=== PATIENT | female | born 1985 | race Caucasian/White ===

== ENCOUNTER → 2016-10-02 | Outpatient (CLI) | payer OTHER ==
[~2016-10-02] MED LIST: ASCO500T87 PO; CETI10TA84 PO; CLR10 PO; FLV1 PO; GLC500 PO; LAMO200T38 PO; LMC25 PO; LXP10 PO; METO-157 PO; ONDA8TAB62 SL; PHNS125 RE; PREN1TAB51 PO; SERT-234 PO; ZNTT/150 PO
== END | disposition home or self-care (01) ==
LOC: C.LAB1850 15:28
PROVIDERS: ATTEND Obstetrics & Gynecology
DX: E03.9 Hypothyroidism, unspecified (principal)

== ENCOUNTER 2016-12-04 00:35 | Emergency (ER) | payer OTHER ==
[~2016-12-04] VITALS: Ht 142.2 cm; Wt 76.4 kg
[~2016-12-04 00:35] MED LIST changes: -ASCO500T87 PO; -CETI10TA84 PO; -FLV1 PO; -GLC500 PO; -LAMO200T38 PO; -LMC25 PO; -LXP10 PO; -METO-157 PO; -ONDA8TAB62 SL; -PHNS125 RE; -PREN1TAB51 PO
[2016-12-04 00:42] VITALS: TEMP 37.3; Ht 142.2 cm; Wt 76.4 kg
[2016-12-04] MEDS ORDERED: LIDOCAINE HCL 2% VISC SOLN 20 ML UDC PO STA (00:55)
[2016-12-04] MEDS ORDERED: ALUMINUM/MAGNESIUM SUSP 30 ML UDC PO STA (00:55)
[2016-12-04] MEDS ORDERED: DEXAMETHASONE SOD INJ 10 MG/ML VIAL PO ONE (01:00)
[2016-12-04 02:00] VITALS: BP 105/67; PULSE 102; O2SAT 96
[2016-12-04] MEDS ORDERED: LXP10 PO (02:13)
[2016-12-04] MEDS ORDERED: PREN1TAB51 PO (02:13)
[2016-12-04] MEDS ORDERED: LAMO200T38 PO (02:13)
[2016-12-04] MEDS ORDERED: LMC25 PO (02:13)
[2016-12-04] MEDS ORDERED: FLV1 PO (02:13)
[2016-12-04] MEDS ORDERED: GLC500 PO (02:13)
[2016-12-04] MEDS ORDERED: ASCO500T87 PO (02:14)
[2016-12-04] MEDS ORDERED: CETI10TA84 PO (02:14)
--- NOTE | 2016-12-04 03:57 | EMERGENCY ROOM VISIT NOTE ---
History First contact with patient: 00:46 Chief Complaint: SORETHROAT Stated Complaint: SEVERE THROAT PAIN History of Present Illness The patient is a 31 year old female who presents to the Emergency Room with complaints of sore throat and loss of voice for the past day. This is a recurrent problem for this patient. Patient denies fever, chills, chest pain, dyspnea, earache, cough, abdominal pain, vomiting, diarrhea. Patient is supposed to have IVF next week. Patient does not smoke or drink. Review of Systems See HPI for pertinent positives & negatives. A total of 10 systems reviewed and were otherwise negative. Past Medical/Surgical History Diabetes, GERD, mood disorder Social History Smoking Status: Never Smoker Alcohol Use: none Drug Use: none Marital Status: Housing Status: lives with family Occupation Status: [employer] student Current/Historical Medications Scheduled Ascorbic Acid (Vitamin C Tr/Priya Hips), 500 MG PO DAILY Cetirizine (Zyrtec), 10 MG PO DAILY Escitalopram Oxalate (Escitalopram Oxalate), 15 MG PO DAILY Folic Acid (Folic Acid), 2 MG PO DAILY Lamotrigine (Lamotrigine), 25 MG PO DAILY Lamotrigine (Lamictal), 200 MG PO DAILY Metformin HCl (Metformin HCl), 500 MG PO DAILY Vit W/ Ferrous Fumara (Pnv Plus Multivi), 1 TAB PO DAILY Ranitidine (Zantac), 150 MG PO BID Allergies Coded Allergies: Amoxicillin (Verified Allergy, Intermediate, HIVES, 12/04/16) Ibuprofen (Verified Allergy, Intermediate, rash, 12/04/16) Shellfish Allergy (Verified Allergy, Intermediate, HIVES, 12/04/16) Physical Exam Vital Signs Date Time Temp Pulse Resp B/P Pulse Ox O2 Delivery O2 Flow Rate FiO2 12/04/16 02:00 102 18 105/67 96 Room Air 12/04/16 01:20 Room Air 12/04/16 00:42 37.3 105 18 122/78 96 Room Air Pain Rating (0-10): 2.0 Physical Exam VITALS: Vitals are noted on the nurse's note and reviewed by myself. Vital signs stable. GENERAL: Pleasant female with a hoarse voice, in no acute distress, nondiaphoretic, well-developed well-nourished. SKIN: The skin was without rashes, erythema, edema, or bruising. There is no tenting of the skin. Capillary reflex less than 2 seconds. HEAD: Normocephalic atraumatic. EARS: External auditory canals clear, tympanic membranes pearly dailey without erythema or effusion bilaterally. EYES: Pupils equal round and reactive to light and accommodation. Conjunctivae without injection, sclerae without icterus. Extraocular movements intact. NOSE: Patent, turbinates without inflammation or discharge. No sinus tenderness. MOUTH: Mucous membranes moist. Pharynx without erythema or exudate. Uvula midline. Airway patent. Tongue does not deviate. NECK: Supple without nuchal rigidity. No lymphadenopathy. No thyromegaly. Cervical spine is nontender. No JVD. HEART: Regular rate and rhythm without murmurs gallops or rubs. LUNGS: Clear to auscultation bilaterally without wheezes, rales or rhonchi. No dullness to percussion. No retractions or accessory muscle use. ABDOMEN: Positive bowel sounds x 4. Normal tympanic percussion. Soft, nontender, without masses or organomegaly. Doran sign negative. No guarding or rebound tenderness. MUSCULOSKELETAL: No muscle atrophy, erythema, or edema noted. NEURO: Patient was alert and oriented to person place and time. Normal sensation to light and sharp touch. No focal neurological deficits. Medical Decision & Procedures Medications Administered Medications (Trade) Dose Ordered Sig/Yvonne Route Start Time Stop Time Status Last Admin Dose Admin Lidocaine HCl (Viscous Lidocaine 2% Soln) 10 ml NOW STAT PO 12/04/16 00:55 12/04/16 00:57 DC 12/04/16 01:18 10 ML Al Hydroxide/Mg Hydroxide (Maalox Susp) 30 ml NOW STAT PO 12/04/16 00:55 12/04/16 00:57 DC 12/04/16 01:18 30 ML Dexamethasone Sodium Phosphate (Decadron Inj) 10 mg NOW ONCE PO 12/04/16 01:00 12/04/16 01:01 DC 12/04/16 01:18 10 MG ED Course Prior records/ancillary studies reviewed. Triage Nursing notes reviewed. The patient's history was concerning for a sore throat. Differential diagnosis: Etiologies such as viral syndrome, tonsillitis, streptococcal pharyngitis, mononucleosis, peritonsillar abscess, retropharyngeal abscess, otitis, pneumonia , influenza, as well as others were entertained. ER treatment provided: Decadron, GI cocktail On reassessment the patient felt better. Diagnostics interpreted by me: The labs revealed negative strep test sent for culture This appears to be consistent with laryngitis. Patient felt somewhat better after being medicated as above. She requested referral to ENT. She was given information on this. She is advised to drink plenty of fluids and stay well- hydrated and to avoid tobacco, alcohol, spicy foods and do vocal rest. She is advised to follow-up family care in a few days or here in the ER sooner for high fevers, lethargy, neck stiffness, worsening signs or symptoms or as needed. By the evaluation outlined above emergent etiologies such as peritonsillar abscess, retropharyngeal abscess, otitis, pneumonia, meningitis, urinary tract infection, sepsis, bacteremia, as well as others were deemed relatively unlikely. The pt informed about the findings as listed above. All questions were answered and pleased with the treatment. Return instructions were outlined and the patient was discharged in stable condition. Referral: The patient was referred back to their primary care physician for follow-up in 2 to 3 days for a recheck of the current condition. Medical Decision As above Impression Primary Impression: Laryngitis, acute Departure Information Dispostion Home / Self-Care Condition GOOD Referrals Thee Hunt D.O. Forms HOME CARE DOCUMENTATION FORM, IMPORTANT VISIT INFORMATION Patient Instructions My [facility], ED Laryngitis Additional Instructions Avoid overuse of your voice. Avoid acidic foods, alcohol, tobacco. Acetaminophen(Tylenol) may be used for fever or pain. Use 1000mg every six hours as needed. Avoid using more than 3000mg in a 24 hour period. (AND/OR) Ibuprofen(Motrin, Advil) may be used for fever or pain. Use 600mg every six hours as needed. Take with food. Avoid using more than 2400mg in a 24 hour period. Do not use 2400mg per day for more than three consecutive days without physician direction. Prolonged inappropriate use can lead to stomach upset or ulcers. Afrin nasal spray: 2-3 sprays to each nostril twice daily as needed for congestion. Do not use for more than 3-4 days because it can lead to worsening rebound congestion. Pseudoephedrine(Sudaphed): 30-60mg every 6 hours as needed for nasal congestion. Do not take this with other stimulant products or supplements. Rest and drink plenty of fluids. Controlling your fever with Tylenol and Ibuprofen as above will make you feel better. Wash your hands after nose blowing, sneezing, or coughing. Most germs are spread through contact, therefore improper hygiene may result in your close contacts and loved ones becoming ill just like you. Continue current medications. Return to the ER for severe headache, neck stiffness, chest pain, difficulty breathing, fevers, vomiting, worsening of your condition, or as needed. Follow up with your primary physician this week for a recheck of your current condition. Follow-up with ENT if symptoms persist. Call for an appointment.
== END 2016-12-04 02:02 | disposition home or self-care (01) ==
LOC: C.EDB 00:37
DX: J04.0 Acute laryngitis (principal); E11.9 Type 2 diabetes mellitus without complications

== ENCOUNTER 2016-12-29 09:23 | Outpatient (CLI) | payer OTHER ==
[~2016-12-29 09:23] MED LIST changes: -KFL500 PO; -METO-157 PO; -ONDA8TAB62 SL; -PHNS125 RE; -RMR15 PO
== END 2016-12-29 09:55 | disposition home or self-care (01) ==
LOC: C.OPB 09:23 → C.LD 09:25 → C.OPB 09:55
PROVIDERS: ATTEND Obstetrics & Gynecology

== ENCOUNTER → 2016-12-29 | Outpatient (CLI) | payer OTHER ==
[~2016-12-29] MED LIST changes: +ASCO500T87 PO; +CETI10TA84 PO; -CLR10 PO; +FLV1 PO; +GLC500 PO; +KFL500 PO; +LAMO200T38 PO; +LMC25 PO; +LXP10 PO; +METO-157 PO; +ONDA8TAB62 SL; +PHNS125 RE; +PREN1TAB51 PO; +RMR15 PO; -SERT-234 PO
[2016-12-29 09:12] LABS: POST WASH EXAM EXCELLENT
== END | disposition home or self-care (01) ==
LOC: C.LAB 08:22
PROVIDERS: ATTEND Obstetrics & Gynecology
DX: N97.9 Female infertility, unspecified (principal)

== ENCOUNTER → 2017-04-03 | Outpatient (CLI) | payer OTHER ==
[~2017-04-03] MED LIST changes: +KFL500 PO; +METO-157 PO; +ONDA8TAB62 SL; +PHNS125 RE; +RMR15 PO
[2017-04-03 14:56] LABS: URINE APPEARANCE CLOUDY (CLEAR); URINE BILIRUBIN NEG (NEG); URINE COLOR DK YELLOW; URINE EPITHELIAL CELL AUTO >30 /lpf (0-5); URINE NITRITE NEG (NEG); URINE SPECIFIC GRAVITY 1.024 (1.000-1.030); UROBILINOGEN NEG (NEG)
[2017-04-03 15:13] LABS: MANUAL MICROSCOPIC REQUIRED? NO; REVIEW REQ? NO
== END | disposition home or self-care (01) ==
LOC: C.LABSPEC 13:45
PROVIDERS: ATTEND Obstetrics & Gynecology
DX: O09.01 Supervision of pregnancy with history of infertility, first trimester (principal)

== ENCOUNTER → 2017-05-07 | Outpatient (CLI) | payer OTHER ==
[2017-05-07 16:12] LABS: BASO % 0.3 %; BASO ABS # 0.02 K/uL (0-0.2); COMPLETE YES; EOS % 1.3 %; HEMATOCRIT 33.3 % (37-47); IG% 0.1 %; LYMPH % 23.7 %; LYMPH ABS # 1.79 K/uL (1.2-3.4); MEAN CELL VOLUME 76.9 fL (80-100); MEAN CORPUSCULAR HEMOGLOBIN 25.6 pg (25-34); MEAN CORPUSCULAR HGB CONC 33.3 g/dl (32-36); MEAN PLATELET VOLUME 9.2 fL (7.4-10.4); MONO % 6.7 %; NEUT % 67.9 %; PLATELET COUNT 345 K/uL (130-400); RED BLOOD COUNT 4.33 M/uL (4.2-5.4); WHITE BLOOD COUNT 7.56 K/uL (4.8-10.8)
[2017-05-09 14:58] LABS: CHLAMYDIA TRACH RNA*** NOT DETECTED (NOT DETECTED); GC (NEIS GONORRHOEAE)RNA** NOT DETECTED (NOT DETECTED)
== END | disposition home or self-care (01) ==
LOC: C.LAB1850 14:57
PROVIDERS: ATTEND Obstetrics & Gynecology
DX: O21.9 Vomiting of pregnancy, unspecified (principal); Z3A.00 Weeks of gestation of pregnancy not specified

== ENCOUNTER 2017-05-27 12:35 | Inpatient (IN) | payer OTHER ==
[~2017-05-27] VITALS: Ht 142.2 cm; Wt 68.0 kg
[~2017-05-27 12:35] MED LIST changes: -KFL500 PO; -METO-157 PO; -ONDA8TAB62 SL; -PHNS125 RE; -RMR15 PO
[2017-05-27] MEDS ORDERED: METO-157 PO (13:20)
[2017-05-27] MEDS ORDERED: PHNS125 RE (13:20)
[2017-05-27] MEDS ORDERED: ONDA8TAB62 SL (13:20)
[2017-05-27 13:52] LABS: URINE APPEARANCE TURBID (CLEAR); URINE COLOR DK YELLOW; URINE EPITHELIAL CELL AUTO >30 /lpf (0-5); URINE NITRITE NEG (NEG); URINE SPECIFIC GRAVITY 1.031 (1.000-1.030); UROBILINOGEN NEG (NEG)
[2017-05-27 14:09] LABS: MANUAL MICROSCOPIC REQUIRED? NO; REVIEW REQ? YES; URINE BILIRUBIN NEG (NEG)
[2017-05-27 14:12] LABS: BASO % 0.1 %; BASO ABS # 0.01 K/uL (0-0.2); COMPLETE YES; EOS % 1.3 %; HEMATOCRIT 34.3 % (37-47); IG% 0.2 %; LYMPH % 24.9 %; LYMPH ABS # 2.12 K/uL (1.2-3.4); MEAN CELL VOLUME 78.3 fL (80-100); MEAN CORPUSCULAR HEMOGLOBIN 25.1 pg (25-34); MEAN CORPUSCULAR HGB CONC 32.1 g/dl (32-36); MEAN PLATELET VOLUME 8.8 fL (7.4-10.4); MONO % 4.6 %; NEUT % 68.9 %; PLATELET COUNT 359 K/uL (130-400); RED BLOOD COUNT 4.38 M/uL (4.2-5.4); WHITE BLOOD COUNT 8.51 K/uL (4.8-10.8)
[2017-05-27 14:28] LABS: URINE MUCUS PRESENT (NONE PRSENT)
[2017-05-27 14:42] LABS: ALT/SGPT 20 U/L (12-78); AST/SGOT 10 U/L (15-37); BLOOD UREA NITROGEN 8 mg/dl (7-18); BUN/CREATININE RATIO 14.5 (10-20); CALCIUM 9.1 mg/dl (8.5-10.1); CARBON DIOXIDE 24 mmol/L (21-32); CHLORIDE 103 mmol/L (98-107); CREATININE 0.55 mg/dl (0.60-1.20); GLUCOSE 76 mg/dl (70-99); POTASSIUM 3.7 mmol/L (3.5-5.1); SODIUM 136 mmol/L (136-145)
[2017-05-27] MEDS ORDERED: CEPHALEXIN MONOHYDRATE 250 MG CAP PO ONE (14:45)
[2017-05-27] MEDS ORDERED: OPTIRAY 320 IV PRN (14:45)
[2017-05-27 14:52] LABS: ALKALINE PHOSPHATASE 90 U/L (45-117); THYROID STIMULATING HORMONE 0.771 uIu/ml (0.300-4.500)
[2017-05-27 15:18] LABS: BENZODIAZEPINE, URINE NEG (NEG); COCAINE,URINE NEG (NEG); PHENCYCLIDINE, URINE NEG (NEG)
--- NOTE | 2017-05-27 15:36 | DIAGNOSTIC IMAGING REPORT ---
(CHEST FOR PE) ANGIO WITH CT DOSE: 254.88 mGy.cm HISTORY: 32 years-old Female acute shortness of breath with and elevated d-dimer. TECHNIQUE: Multiple CTA images of the chest were obtained after the intravenous administration of 77 ml Optiray 320. Coronal and sagittal MIPS were obtained from the axial data set and were submitted for review. A dose lowering technique was utilized adhering to the principles of ALARA. COMPARISON: None. FINDINGS: Study is mildly limited secondary to respiratory motion. CTA: There is adequate opacification of the pulmonary arteries to the level of the proximal subsegmental branches without convincing evidence of acute pulmonary embolism. No thoracic aortic aneurysm or dissection. Heart size is normal. CT CHEST: Thyroid is heterogeneous with nodules seen measuring up to 1.3 cm on the right. No pathologically adenopathy by CT size criteria. There is no pneumothorax, pleural effusion or focal airspace consolidation. Inferior most lung bases are not imaged The imaged upper abdominal structures are normal. The osseous structures appear intact. IMPRESSION: 1. No acute abnormality of the chest identified, specifically no acute aortic pathology or evidence of pulmonary thromboembolic disease. 2. Heterogeneous multinodular thyroid could be further evaluated with ultrasound. The above report was generated using voice recognition software. It may contain grammatical, syntax or spelling errors. Electronically signed by: Ramon Chapa M.D. 05/27/2017 3:34 PM Dictated Date/Time: 05/27/2017 3:29 PM
[2017-05-27] MEDS ORDERED: hydrOXYzine HCL 25 MG TAB PO PRN ×2 (16:30)
[2017-05-27] MEDS ORDERED: PROMETHAZINE HCL 12.5 MG SUPP PR PRN (16:30)
[2017-05-27] MEDS ORDERED: ACETAMINOPHEN 325 MG TAB PO PRN (16:30)
[2017-05-27] MEDS ORDERED: SODIUM CHLORIDE 0.65% NA SOLN 45 ML (OCEAN) PRN (16:30)
[2017-05-27] MEDS ORDERED: ALUMINUM/MAGNESIUM SUSP 30 ML UDC PO PRN (16:30)
[2017-05-27] MEDS ORDERED: BISMUTH SUBSALICYLATE PER ML OMNICELL CHARGE PO PRN (16:30)
[2017-05-27] MEDS ORDERED: ONDANSETRON 8MG OD TAB SL PRN (16:30)
[2017-05-27] MEDS ORDERED: MAGNESIUM HYDROXIDE SUSP 30 ML UDC PO PRN (16:30)
--- NOTE | 2017-05-27 16:42 | EMERGENCY ROOM VISIT NOTE ---
History Report prepared by Nell: Simon Tipton Under the Supervision of: Dr. Arsen Schumacher D.O. First contact with patient: 12:46 Chief Complaint: MENTAL HEALTH EVALUATION Stated Complaint: SEVERE DEPRESSION History of Present Illness The patient is a 32 year old female who presents to the Emergency Room for a mental health evaluation due to severe depression that worsened last night. Per the nursing staff, the patient is currently , and she has a history of severe depression for ten years. The patient has been currently having some suicidal ideations with no plan, and she feels hopeless. She has a history of OCD and intrusions of thoughts of self harm. 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 The patient states that she has been eating and drinking well, and she has been sleeping normally. She additionally states that she is having some left sided chest pain which is worsened with breathing that started last night. She states that she has been once before, and the depression is worse this time. Patient denies swelling of calves, recent trips, history of immobilization or recent surgery, prior history of DVT, hemoptysis, history of malignancy, history of smoking, or control/estrogen use. Patient denies diabetes, hypertension, hyperlipidemia, CAD, history of sudden at a young age, and smoking. The patient states that she recently talked to her psychiatrist, and they wanted her to be evaluated. Pt denies headache, change in vision, fevers, shortness of breath, nausea, vomiting, diarrhea, and pain with urination. Source of History: patient, nursing staff Onset: last night Position: other (global) Symptom Intensity: severe Quality: other (depression) Timing: worsening Associated Symptoms: + chest pain Review of Systems See HPI for pertinent positives & negatives. A total of 10 systems reviewed and were otherwise negative. Past Medical & Surgical Medical Problems: (1) Depression (2) Social History Smoking Status: Never Smoker Alcohol Use: none Drug Use: none Marital Status: Housing Status: lives with family Occupation Status: [employer] student Current/Historical Medications Scheduled Cetirizine (Zyrtec), 10 MG PO DAILY Escitalopram Oxalate (Escitalopram Oxalate), 10 MG PO DAILY Folic Acid (Folic Acid), 2 MG PO DAILY Lamotrigine (Lamictal), 300 MG PO DAILY Metoclopramide (Reglan), 10 MG PO Q8 Scheduled PRN Ondansetron Odt (Zofran Odt), 8 MG SL Q6H PRN for Nausea Promethazine HCl (Phenadoz), 1-2 SUPP RE Q4 PRN for Nausea Allergies Coded Allergies: Amoxicillin (Verified Allergy, Intermediate, HIVES, 05/27/17) Ibuprofen (Verified Allergy, Intermediate, rash, 05/27/17) Shellfish Allergy (Verified Allergy, Intermediate, HIVES, 05/27/17) Physical Exam Vital Signs Date Time Temp Pulse Resp B/P (MAP) Pulse Ox O2 Delivery O2 Flow Rate FiO2 05/27/17 17:00 73 16 107/68 99 05/27/17 14:50 72 16 97/55 99 05/27/17 13:03 36.8 84 18 114/70 98 Room Air Physical Exam GENERAL: Sitting up in bed, well-appearing, no acute distress, non-toxic. Head Garb in place. EYE EXAM: normal conjunctiva OROPHARYNX: no exudate, no erythema, lips, buccal mucosa, and tongue normal and mucous membranes are moist NECK: supple, no nuchal rigidity, no adenopathy, non-tender LUNGS: Clear to auscultation. Normal chest wall mechanics HEART: no murmurs, S1 normal and S2 normal CHEST: No reproducible anterior chest wall pain. ABDOMEN: abdomen soft, non-tender, normo-active bowel sounds, no masses, no rebound or guarding. BACK: Back is symmetrical on inspection and there is no deformity, no midline tenderness, no CVA tenderness. SKIN: no rashes and no bruising UPPER EXTREMITIES: upper extremities are grossly normal. LOWER EXTREMITIES: Calves equal bilaterally. No pitting edema. NEURO EXAM: Normal sensorium, cranial nerves II-XII grossly intact, normal speech, no gross weakness of arms, no gross weakness of legs. Gross sensation intact. PSYCH: Admits to depression. Denies any active suicidal thoughts. Admits passive suicidal thoughts. Medical Decision & Procedures ER Provider Diagnostic Interpretation: Radiology results as stated below per my review and the radiologist's interpretation: (CHEST FOR PE) ANGIO WITH CT DOSE: 254.88 mGy.cm HISTORY: 32 years-old Female acute shortness of breath with and elevated d-dimer. TECHNIQUE: Multiple CTA images of the chest were obtained after the intravenous administration of 77 ml Optiray 320. Coronal and sagittal MIPS were obtained from the axial data set and were submitted for review. A dose lowering technique was utilized adhering to the principles of ALARA. COMPARISON: None. FINDINGS: Study is mildly limited secondary to respiratory motion. CTA: There is adequate opacification of the pulmonary arteries to the level of the proximal subsegmental branches without convincing evidence of acute pulmonary embolism. No thoracic aortic aneurysm or dissection. Heart size is normal. CT CHEST: Thyroid is heterogeneous with nodules seen measuring up to 1.3 cm on the right. No pathologically adenopathy by CT size criteria. There is no pneumothorax, pleural effusion or focal airspace consolidation. Inferior most lung bases are not imaged The imaged upper abdominal structures are normal. The osseous structures appear intact. IMPRESSION: 1. No acute abnormality of the chest identified, specifically no acute aortic pathology or evidence of pulmonary thromboembolic disease. 2. Heterogeneous multinodular thyroid could be further evaluated with ultrasound. The above report was generated using voice recognition software. It may contain grammatical, syntax or spelling errors. Electronically signed by: Ramon Chapa M.D. 05/27/2017 3:34 PM Dictated Date/Time: 05/27/2017 3:29 PM Laboratory Results 05/27/17 13:27 Red Blood Count 4.38, Mean Corpuscular Volume 78.3, Mean Corpuscular Hemoglobin 25.1, Mean Corpuscular Hemoglobin Concent 32.1, Mean Platelet Volume 8.8, Neutrophils (%) (Auto) 68.9, Lymphocytes (%) (Auto) 24.9, Monocytes (%) (Auto) 4.6, Eosinophils (%) (Auto) 1.3, Basophils (%) (Auto) 0.1, Neutrophils # (Auto) 5.86, Lymphocytes # (Auto) 2.12, Monocytes # (Auto) 0.39, Eosinophils # (Auto) 0.11, Basophils # (Auto) 0.01 05/27/17 13:27 Test 05/27/17 00:00 05/27/17 13:25 05/27/17 13:27 Urine Color DK YELLOW Urine Appearance TURBID (CLEAR) Urine pH 6.0 (4.5-7.5) Urine Specific [place] 1.031 (1.000-1.030) Urine Protein 1+ (NEG) Urine Glucose (UA) NEG (NEG) Urine Ketones 1+ (NEG) Urine Occult Blood 3+ (NEG) Urine Nitrite NEG (NEG) Urine Bilirubin NEG (NEG) Urine Urobilinogen NEG (NEG) Urine Leukocyte Esterase TRACE (NEG) Urine WBC (Auto) 10-30 /hpf (0-5) Urine RBC (Auto) 5-10 /hpf (0-4) Urine Hyaline Casts (Auto) 1-5 /lpf (0-5) Urine Epithelial Cells (Auto) >30 /lpf (0-5) Urine Bacteria (Auto) 2+ (NEG) Urine Pathogenic Casts /lpf (0) Urine Mucus PRESENT (NONE PRSENT) Urine Yeast (Auto) (NONE PRSENT) Urine Opiates Screen NEG (NEG) Urine Methadone, Qualitative NEG (NEG) Urine Barbiturates NEG (NEG) Urine Phencyclidine (PCP) Level NEG (NEG) Ur Amphetamine/Methamphetamine NEG (NEG) MDMA (Ecstasy) Screen NEG (NEG) Urine Benzodiazepines Screen NEG (NEG) Urine Cocaine Metabolite NEG (NEG) Urine Marijuana (THC) NEG (NEG) Bedside Glucose 80 mg/dl (70-90) White Blood Count 8.51 K/uL (4.8-10.8) Red Blood Count 4.38 M/uL (4.2-5.4) Hemoglobin 11.0 g/dL (12.0-16.0) Hematocrit 34.3 % (37-47) Mean Corpuscular Volume 78.3 fL (80-100) Mean Corpuscular Hemoglobin 25.1 pg (25-34) Mean Corpuscular Hemoglobin Concent 32.1 g/dl (32-36) Platelet Count 359 K/uL (130-400) Mean Platelet Volume 8.8 fL (7.4-10.4) Neutrophils (%) (Auto) 68.9 % Lymphocytes (%) (Auto) 24.9 % Monocytes (%) (Auto) 4.6 % Eosinophils (%) (Auto) 1.3 % Basophils (%) (Auto) 0.1 % Neutrophils # (Auto) 5.86 K/uL (1.4-6.5) Lymphocytes # (Auto) 2.12 K/uL (1.2-3.4) Monocytes # (Auto) 0.39 K/uL (0.11-0.59) Eosinophils # (Auto) 0.11 K/uL (0-0.5) Basophils # (Auto) 0.01 K/uL (0-0.2) RDW Standard Deviation 40.5 fL (36.4-46.3) RDW Coefficient of Variation 14.2 % (11.5-14.5) Immature Granulocyte % (Auto) 0.2 % Immature Granulocyte # (Auto) 0.02 K/uL (0.00-0.02) D-Dimer 700 ug/L FEU (0-500) Anion Gap 9.0 mmol/L (3-11) Est Creatinine Clear Calc Drug Dose 112.4 ml/min Estimated GFR () 142.8 Estimated GFR (Non- 123.2 BUN/Creatinine Ratio 14.5 (10-20) Calcium Level 9.1 mg/dl (8.5-10.1) Total Bilirubin 0.2 mg/dl (0.2-1) Direct Bilirubin < 0.1 mg/dl (0-0.2) Aspartate Amino Transf (AST/SGOT) 10 U/L (15-37) Alanine Aminotransferase (ALT/SGPT) 20 U/L (12-78) Alkaline Phosphatase 90 U/L (45-117) Troponin I < 0.015 ng/ml (0-0.045) Total Protein 7.8 gm/dl (6.4-8.2) Albumin 3.6 gm/dl (3.4-5.0) Thyroid Stimulating Hormone (TSH) 0.771 uIu/ml (0.300-4.500) Ethyl Alcohol mg/dL < 3.0 mg/dl (0-3) Laboratory results per my review. Medications Administered Medications (Trade) Dose Ordered Sig/Yvonne Route Start Time Stop Time Status Last Admin Dose Admin Cephalexin Monohydrate (Keflex Cap) 500 mg NOW ONCE PO 05/27/17 14:45 05/27/17 14:46 DC 05/27/17 14:48 500 MG ECG Indication: chest pain Rate (beats per minute): 70 Rhythm: sinus rhythm Findings: T-wave inversion (Septal and anterior), other (T-wave flattening in the lateral leads) ED Course ED COURSE: Vital signs were reviewed and showed normal vitals The patients medical record was reviewed The above diagnostic studies were performed and reviewed. ED treatments and interventions as stated above. 1246: The patient was evaluated in room A8. A complete history and physical examination was performed. 1405: The patient declined the chest x-ray 1444: The heart rate was 150, and I explained the risks and benefits of a CT PE, and she was agreeable 1445: Keflex Cap 500mg PO 1600: [facility] has accepted the patient for further evaluation. 1605: Upon reevaluation, the patient is doing well.I discussed my findings with the patient and she understands and agrees with the treatment plan. Based on the patients age, coexisting illnesses, exam and lab findings the decision to treat as an inpatient was made. The patient remained stable while under my care. The patient will be evaluated for further management. Medical Decision Differential diagnosis: Etiologies such as mood disorder, infection, hypoglycemia, electrolyte abnormalities, cardiac sources, intracerebral event, toxicologic, neurologic, as well as others were entertained. Patient is a 32-year-old female who presents to ER for passive thoughts of self- harm associated with severe depression. She is currently 15 weeks and 6 days as a . She has been followed with psychiatry who referred her in. Patient's only other complaint is a pleuritic chest pain which is only present with breathing. If she was not breathing she notes she would not have any chest pain. It does not change with position. No cardiac risk factors. D- dimer was obtained and elevated. EKG shows nonspecific T-wave changes. CT PE was unremarkable. No PEs, pericardial effusion, pulmonary edema or infiltrate. Troponin was negative as well with pain that has been present since last night. UA shows bacteria although likely contaminated with multiple epithelial cells. As she is she was covered with Keflex and will need this for a total of 7 days. She was also found to have a thyroid nodule which will need to be followed up. Patient was admitted to [address] [place] [address] with depression, bacteria in urine covered with Keflex and a thyroid nodule. Medication Reconcilliation Current Medication List: was personally reviewed by me Blood Pressure Screening Patient's blood pressure: Normal blood pressure Impression Primary Impression: Mood disorder Additional Impressions: Thyroid nodule Bacteria in urine Scribe Attestation The scribe's documentation has been prepared under my direction and personally reviewed by me in its entirety. I confirm that the note above accurately reflects all work, treatment, procedures, and medical decision making performed by me. Departure Information Dispostion Mental Health Acute Care Referrals No Doctor, Assigned (PCP) Patient Instructions My [facility] Problem Qualifiers
[2017-05-27 17:00] VITALS: O2SAT 99
[2017-05-27 17:41] VITALS: BP 110/75; PULSE 90; TEMP 36.8; Ht 142.2 cm; Wt 68.0 kg
[2017-05-27] MEDS ORDERED: NURSING VERBAL MED ORDER ONE ×2 (18:15→22:00)
[2017-05-27] MEDS: CEPHALEXIN MONOHYDRATE 500 MG CAP PO SCH (21:54)
[2017-05-27] MEDS: METOCLOPRAMIDE HCL 10 MG TAB PO SCH ×2 (21:54→22:00)
[2017-05-28] MEDS: METOCLOPRAMIDE HCL 10 MG TAB PO SCH ×3 (06:41→22:00)
[2017-05-28 07:06] VITALS: BP_SYST 107; BP_SYST 110; BP_DIAS 72; BP_DIAS 76; PULSE 80; PULSE 87; TEMP 36.8
[2017-05-28] MEDS: CEPHALEXIN MONOHYDRATE 500 MG CAP PO SCH ×3 (08:01→22:02)
[2017-05-28] MEDS: ESCITALOPRAM OXALATE 10 MG TAB PO SCH (08:01)
[2017-05-28] MEDS: CETIRIZINE HCL 10 MG TAB PO SCH (08:07)
--- NOTE | 2017-05-28 11:00 | Psychiatric History & Physical ---
History Date of Service May 28, 2017. Identifying Data Christiano Perez is a 32-year-old female who currently lives in [place] with her , has a history of depression and OCD, follows with Dr. Muñoz at [facility], and presented to the emergency room with worsening depression and intrusive thoughts of self-harm. She is currently 15 weeks , and was admitted voluntarily. Chief Complaint "Feeling quite sad and hopeless". History of Present Illness The patient percent of the emergency room on referral from her outpatient psychiatrist due to worsening of depression, intrusive thoughts, and inability to function. She reported that her mood has worsened as her progresses, and is 16 weeks today. She endorsed sad mood, decreased appetite, disrupted sleep with about 7 hours a night, high anxiety, avoidance, and intrusive thoughts of self-harm. She has not been attending class and is unable to be managed on an outpatient basis per her outpatient psychiatrist. She denies any recent stressors. According to outpatient records, she has been seeing Dr. Mñuoz since November 2015 , and is diagnosed with recurrent depression and OCD. She has a long-standing history of anxiety since childhood, with scientology compulsions and obsessive thoughts. She had her first episode of severe depression in middle school, but did not seek treatment until she was in college. She denied a history of panic , agoraphobia, PTSD, memory problems, disruptive behaviors of childhood, psychosis, moy, and eating disorder. She was continued on sertraline, and encouraged to take a higher dose of 150 mg daily, which she was resistant to. She was referred to therapy with Ira Xiong. They also discussed the option of a trial of fluoxetine, which she was resistant to. She returned home to the [facility] for the summer of 2015, and resumed treatment when she returned to [place] in the fall. Her sertraline was increased to 150 mg daily to target mood and anxiety symptoms, but she felt this made her more irritable and sleep worse, so was switched to escitalopram, which was increased to 15 mg daily. She then reported feeling more irritable and on edge, so escitalopram was decreased to 10 mg daily and lamotrigine was added in October 2016, and the dose increased to 200 mg daily. She then reported worsening irritability, which she attributed to the lamotrigine, although the symptoms were similar to those reported prior to starting the medication. Hydroxyzine was added for sleep and anxiety in December. She reported improvement, but then became , with nausea and fatigue during the first trimester, and worsening of mood and anxiety. Lamotrigine was increased to 300 mg daily, and escitalopram 10 mg daily was continued. She was last seen 05/21/2017, and reported ongoing depression, anxiety, sleep disturbance, and intrusive passive suicidal thoughts. Lamotrigine was increased to 200 mg twice a day, and a level was ordered. They also discussed potential trials of mirtazapine, bupropion, or buspirone. She was encouraged to try to taper to cope reminded as it may be contributing to restlessness, and was also taking Zofran and phenadoz. She then called into the clinic yesterday, reporting feeling severely depressed since the day before, unable to function, saying she could "barely make it through the day." She reported ongoing poor sleep and felt exhausted, was unable to taper metoclopramide as nausea returned, but was reducing the phenadoz suppositories as she recognized it was making her restless at night. Anxiety was worse at night, and she endorsed fatigue, low motivation and energy , psychomotor retardation, hopelessness, helplessness, worthlessness, and worsening obsessional thoughts of self-harm. They discussed the option to change her antidepressant, but she felt hopeless about this, and agreed to go to the hospital. She has endorsed ambivalence about taking medications, expressing concerns about /breast-feeding when on medications, and has often not increase the dose of her medications as recommended. Today, she states she has had worsening mood and anxiety since she got , and this weekend was tearful and feeling hopeless. Sleep was worse, had been taking Phenadoz (promethazine) from her OB, which initially seemed to help, then felt sleep got worse and she was more restlessness. She describes intrusive thoughts to harm herself, thinking that if she was hurting, she wouldn 't feel so depressed and anxious, and thought of slamming her fingers in the door, but denies acting on them. She states she is able to talk to her , and has talked to him since yesterday and feels he will be supportive of her hospitalization. She also endorses worsening anxiety, is now constant, describes as "being irritated, like an obsessive thought, tense." She denies panic, but has had some muscle tension in her shoulders and worries about her , her depression and if it will get better, how she will be able to take care of the baby. She had some depression during the first trimester of her last , but thinks it got better. She has had "extreme nausea and fatigue" during her first trimester, but thinks it is getting better. 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 She remains ambivalent about medication changes, saying after much consideration that she wants to try the Remeron. She is also wondering whether she needs to be in the hospital, stating that she barely slept last night and has been crying all day, and was advised that he is the very recent admission was recommended. She asked multiple questions about expected length of stay and treatment offered while she is here, and ultimately was willing to stay voluntarily for treatment. Past Psychiatric History Current OP Treatment: psychiatrist (Dr. Muñoz at [facility]), therapist ( Ira De Guzman) Prior OP Treatment: psychiatrist (previously saw a psychiatrist in the [facility]), therapist (briefly in 2004, did not feel it was helpful) Prior Psych Hospitalizations: none Access to a Gun: No Suicide Attempts: No Past Medication Trials Faverin - not available in the [place], was on it for 4-5 years Sertraline - 4-5 years, took throughout first and while breast-feeding Alprazolam - used briefly as needed Additional Notes Diagnosed with recurrent depression, generalized anxiety disorder, obsessive- compulsive disorder, and has endorsed PMDD symptoms Past Medical/Surgical History History of Concussion/Seizure: No (1) (2) Thyroid nodule (3) Bacteria in urine PCP is U at bedtime, OB is Dr. Willard. . Allergies Allergies: Coded Allergies: Amoxicillin (Verified Allergy, Intermediate, HIVES, 05/27/17) Ibuprofen (Verified Allergy, Intermediate, rash, 05/27/17) Shellfish Allergy (Verified Allergy, Intermediate, HIVES, 05/27/17) Home Medications Scheduled Cetirizine (Zyrtec), 10 MG PO DAILY Escitalopram Oxalate (Escitalopram Oxalate), 10 MG PO DAILY Folic Acid (Folic Acid), 2 MG PO DAILY Lamotrigine (Lamictal), 300 MG PO DAILY Metoclopramide (Reglan), 10 MG PO Q8 Scheduled PRN Ondansetron Odt (Zofran Odt), 8 MG SL Q6H PRN for Nausea Promethazine HCl (Phenadoz), 1-2 SUPP RE Q4 PRN for Nausea Family History History of Suicide: No History of Substance Abuse: No Psychiatric History: Yes (father has a history of anxiety and OCD, father's side with OCD and sisters with anxiety but have not required treatment. Depression on both mother's and father's sides of the family.) Alcohol Use Alcohol Use In Past 12 Months: No AUDIT Total Score: 0 Smoking Use Smoking Status: Never Smoker Substance History Denies substance abuse. Personal History [place] , but is a [facility] citizen Childhood: Normal childhood, no history of abuse. Raised by both parents, second oldest of 5 girls. Denies problems in school, but always had difficulty with friendships, feeling people did not like her. Family lives in [facility]. 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 Spiritual Affiliation: Christianity Legal History: none Psychological Trauma History: Denies Hx Traumatic Event Review of Systems 10 systems reviewed; negative except as stated above. Examination Physical Examination A physical exam was performed in the ER prior to admission to the unit by Dr. Schumacher. I accept that physical as correct/medical clearance for the inpatient physical exam. Vital Signs Vital Signs Past 12 Hours Date Time Temp Pulse Resp B/P (MAP) Pulse Ox O2 Delivery O2 Flow Rate FiO2 05/28/17 07:06 36.8 80 16 110/72 87 107/76 Laboratory Results Last 24 Hours Test 05/27/17 13:25 05/27/17 13:27 Bedside Glucose 80 mg/dl White Blood Count 8.51 K/uL Red Blood Count 4.38 M/uL Hemoglobin 11.0 g/dL Hematocrit 34.3 % Mean Corpuscular Volume 78.3 fL Mean Corpuscular Hemoglobin 25.1 pg Mean Corpuscular Hemoglobin Concent 32.1 g/dl Platelet Count 359 K/uL Mean Platelet Volume 8.8 fL Neutrophils (%) (Auto) 68.9 % Lymphocytes (%) (Auto) 24.9 % Monocytes (%) (Auto) 4.6 % Eosinophils (%) (Auto) 1.3 % Basophils (%) (Auto) 0.1 % Neutrophils # (Auto) 5.86 K/uL Lymphocytes # (Auto) 2.12 K/uL Monocytes # (Auto) 0.39 K/uL Eosinophils # (Auto) 0.11 K/uL Basophils # (Auto) 0.01 K/uL RDW Standard Deviation 40.5 fL RDW Coefficient of Variation 14.2 % Immature Granulocyte % (Auto) 0.2 % Immature Granulocyte # (Auto) 0.02 K/uL D-Dimer 700 ug/L FEU Sodium Level 136 mmol/L Potassium Level 3.7 mmol/L Chloride Level 103 mmol/L Carbon Dioxide Level 24 mmol/L Anion Gap 9.0 mmol/L Blood Urea Nitrogen 8 mg/dl Creatinine 0.55 mg/dl Est Creatinine Clear Calc Drug Dose 112.4 ml/min Estimated GFR () 142.8 Estimated GFR (Non- 123.2 BUN/Creatinine Ratio 14.5 Random Glucose 76 mg/dl Calcium Level 9.1 mg/dl Total Bilirubin 0.2 mg/dl Direct Bilirubin < 0.1 mg/dl Aspartate Amino Transf (AST/SGOT) 10 U/L Alanine Aminotransferase (ALT/SGPT) 20 U/L Alkaline Phosphatase 90 U/L Troponin I < 0.015 ng/ml Total Protein 7.8 gm/dl Albumin 3.6 gm/dl Thyroid Stimulating Hormone (TSH) 0.771 uIu/ml Ethyl Alcohol mg/dL < 3.0 mg/dl Mental Examination During interview pt is: alert and oriented, cooperative Appearance: appropriately dressed (wearing a headscarf), appropriately groomed Eye contact is: good Motor behavior is: steady gait & station, no abnormal motor movements Speech: normal in rate, rhythm & volume Affect: mood congruent, depressed, tearful, anxious Mood is: depressed, irritable, anxious Thought process: goal directed Thought content: other (intrusive thoughts) Suicidal thought are: denied (but intrusive thoughts of self harm) Homicidal thoughts are: denied Hallucinations: denies auditory, denies visual Cognition: memory grossly intact, attention grossly intact, language grossly intact Intelligence estimated to be: consistent with level of education Insight: impaired Judgement: impaired Impression / Recommendations Impression 32-year-old female with a history of recurrent depression, generalized anxiety disorder, and OCD who presents with worsening mood and anxiety in the context of a 16 week , intrusive thoughts of self-harm, and inability to function. She is admitted voluntarily on recommendation from her outpatient psychiatrist. Inventory Assets Strengths: , enrolled in a PhD program, supportive and outpatient providers Risk Factors Assessment : No /single/: No Higher / Fall in social status: No Access to guns: No Health problems: Yes () Mental Health Diagnoses: Yes Substance use disorders: No Previous attempt: No Family history of suicide: No Previous psychiatric stay: No Hopelessness: Yes Smoker: No Protective Factors Assessment Uatsdin beliefs: Yes : Yes Responsible for young children: Yes Employed: Yes Stable relationships: No (has few friendships) Supportive family: Yes Good rapport with provider: Yes Recommendations (1) Depression - Continue lamotrigine 300 mg daily and escitalopram 10 mg daily. Coordinated care with outpatient psychiatrist, Dr. Muñoz. Reviewed medication options that have been discussed with the patient at her last appointment, and seemingly mirtazapine, buspirone, and bupropion. She opted for a trial of mirtazapine. Risks, benefits, and side effects were discussed, including the risks to the fetus in , what is known and not known about potential risks, and the risks of untreated mood and anxiety disorders. Start 7.5 mg daily at bedtime tonight, and titrate as tolerated. - Encourage participation in groups and therapy on the unit. Work on healthy coping skills and discharge safety plan. - Schedule family meeting with . - For sleep, continue promethazine 12.5 mg daily at bedtime when necessary, which she may use if mirtazapine is not effective for sleep. She reports worsening sleep and increased restlessness on her previous dose of 25 mg daily at bedtime, but thinks the 12.5 mg dose has been helpful. (2) Bacteria in urine Continue seven-day course of Keflex which was started in the emergency room. (3) - Will need to follow-up as scheduled with her OB. Get a release and send records for coordination of care. (4) Thyroid nodule Incidental finding in the emergency room. Follow-up with PCP. CPT Code Initial Hospital Care: 24415 Problem Qualifiers (1) Depression: Depression Type: major depressive disorder Major depression recurrence: recurrent Major depression episode severity: severe Psychotic features: without psychotic features (2) : Weeks of gestation: 16 weeks Qualified Codes: Z3A.16 - 16 weeks gestation of
[2017-05-28] MEDS: MIRTAZAPINE TAB 15 MG TAB PO SCH (22:02)
[2017-05-29 06:46] VITALS: BP_SYST 107; BP_SYST 97; BP_DIAS 64; BP_DIAS 72; PULSE 92; PULSE 94; TEMP 37
[2017-05-29] MEDS: METOCLOPRAMIDE HCL 10 MG TAB PO SCH ×3 (06:56→20:58)
[2017-05-29] MEDS: CETIRIZINE HCL 10 MG TAB PO SCH (09:49)
[2017-05-29] MEDS: ESCITALOPRAM OXALATE 10 MG TAB PO SCH (09:49)
[2017-05-29] MEDS: CEPHALEXIN MONOHYDRATE 500 MG CAP PO SCH ×3 (09:49→21:06)
--- NOTE | 2017-05-29 13:32 | Psychiatric Progress Notes ---
Progress Note Date of Service May 29, 2017. Interval History 32-year-old female with a history of recurrent depression, generalized anxiety disorder, and OCD who presents with worsening mood and anxiety in the context of a 16 week , intrusive thoughts of self-harm, and inability to function. She is admitted voluntarily on recommendation from her outpatient psychiatrist. Chief Complaint "I am cheerful, more hopeful.". Subjective Patient was seen & assessed interval progress reviewed with Treatment Team. The patient says that she had a better night's sleep last night with the Remeron. She is also eating better, and without nausea since admission which surprises her. She admits that yesterday she was "in denial" about the need to be in the hospital and today acknowledges that it was necessary. She has a meeting with her this AM which she felt went well, and felt supported by him. She says that her thoughts are "clear" today and not having any obsessive thoughts about self harm. This is allowing her to think and plan for the future, something she said she was unable to do [employer]. She has submitted a 72 hr notice to withdraw from treatment that will on Saturday and she says that she understands the recommendation to stay another day or two to see if she can sustain her improvements. She reports that she experienced some restlessness after taking the Remeron last night, but it was tolerable. Review of Systems Constitutional: No fever, No chills, No sweats, No weight loss, No weakness, No fatigue, No problem reported ENT: No hearing loss, No unusual epistaxis, No nasal symptoms, No sore throat, No tinnitus, No dental problems, No trouble swallowing, No problem reported Respiratory: No cough, No sputum, No wheezing, No shortness of breath, No dyspnea on exertion, No dyspnea at rest, No hemoptysis, No problem reported Cardiovascular: No chest pain, No orthopnea, No PND, No edema, No claudication , No palpitations, No problem reported Abdomen: + problem reported (16 weeks ) Musculoskeletal: No joint pain, No muscle pain, No swelling, No calf pain, No problem reported Neurologic: No memory loss, No paralysis, No weakness, No numbness/tingling, No vertigo, No balance problems, No problem reported Psychiatric: + problem reported (restless after taking Remeron) Integumentary: No rash, No itch, No new/changing skin lesions, No color change , No bleeding, No problem reported Sleep Information Total Hours of Sleep: 6.00 Meal Information Percent of Breakfast Consumed: 100 Percent of Lunch Consumed: 50 Percent of Dinner Consumed: 100 Mental Status Exam During interview pt is: alert and oriented, cooperative Appearance: appropriately dressed (wearing a headscarf), appropriately groomed Eye contact is: good Motor behavior is: steady gait & station, no abnormal motor movements Speech: normal in rate, rhythm & volume Affect: mood congruent, blunted, anxious Mood is: depressed Thought process: goal directed Thought content: reality based without delusions Suicidal thought are: denied (but intrusive thoughts of self harm on a chronic basis) Homicidal thoughts are: denied Hallucinations: denies auditory, denies visual Cognition: memory grossly intact, attention grossly intact, language grossly intact Intelligence estimated to be: consistent with level of education Insight: fair Judgement: fair Impression Has adjusted to the milieu and less pancked about being in the hospital. Remeron was helpful to sleep and appetite and she reports clear thinking today, without her chronic obsessive thoughts of self harm. She has submitted her 72 hr notice to withdraw from treatment, but is willing to stay another day or two to confirm that the meds are working. We will continue her current dose for tonight and re-eval in the AM. Plan (1) Depression - Continue lamotrigine 300 mg daily and escitalopram 10 mg daily. Coordinated care with outpatient psychiatrist, Dr. Muñoz. Reviewed medication options that have been discussed with the patient at her last appointment, and seemingly mirtazapine, buspirone, and bupropion. She opted for a trial of mirtazapine. Risks, benefits, and side effects were discussed, including the risks to the fetus in , what is known and not known about potential risks, and the risks of untreated mood and anxiety disorders. Start 7.5 mg daily at bedtime tonight, and titrate as tolerated. - Encourage participation in groups and therapy on the unit. Work on healthy coping skills and discharge safety plan. - Schedule family meeting with . - For sleep, continue promethazine 12.5 mg daily at bedtime when necessary, which she may use if mirtazapine is not effective for sleep. She reports worsening sleep and increased restlessness on her previous dose of 25 mg daily at bedtime, but thinks the 12.5 mg dose has been helpful. 05/29 - Continue Remeron 7.5 mg HS - Family meeting held with this AM - 72 hr notice in, and will on Saturday. REcommend staying another day to two to see if improvements are sustained. (2) Bacteria in urine Continue seven-day course of Keflex which was started in the emergency room. (3) - Will need to follow-up as scheduled with her OB. Get a release and send records for coordination of care. (4) Thyroid nodule Incidental finding in the emergency room. Follow-up with PCP. Discharge / Aftercare Planning Primary Care Physician: Name: [facility]; Dr Willard is pts OB Dr Appointment Notes: As needed for PCP, OB appt scheduled as below. Psychiatrist: Name: Dr. Muñoz Date of Appointment: Jun 06, 2017 Therapist: Name: Ira De Guzman Date of Appointment: Jun 05, 2017 Plant Operator Helper: Name: None Specialist: Name: Dr. Willard, [facility] Date of Appointment: Jun 04, 2017 Time of Appointment: 11:40 Visit Code E&M Code: 01924 Inventory Assets Strengths: , enrolled in a PhD program, supportive and outpatient providers Risk Factors Assessment : No /single/: No Higher / Fall in social status: No Health problems: Yes () Mental Health Diagnoses: Yes Substance use disorders: No Previous attempt: No Family history of suicide: No Previous psychiatric stay: No Hopelessness: Yes Smoker: No Protective Factors Assessment Spiritism beliefs: Yes : Yes Responsible for young children: Yes Employed: Yes Stable relationships: No (has few friendships) Supportive family: Yes Good rapport with provider: Yes Data Vital Signs Last 24 Hrs: Date Time Temp Pulse Resp B/P (MAP) Pulse Ox O2 Delivery O2 Flow Rate FiO2 05/29/17 06:46 37.0 92 16 97/64 94 107/72 Meds Administered Last 24 Hrs: Meds Administered (Past 24Hrs) Medications (Trade) Dose Ordered Sig/Yvonne Route Start Time Stop Time Status Last Admin Dose Admin Cephalexin Monohydrate (Keflex Cap) 500 mg NOW ONCE PO 05/27/17 14:45 05/27/17 14:46 DC 05/27/17 14:48 500 MG Cetirizine HCl (zyrTEC TAB) 10 mg DAILY PO 05/28/17 09:00 06/27/17 08:59 05/29/17 09:49 10 MG Escitalopram Oxalate (Lexapro Tab) 10 mg DAILY PO 05/28/17 09:00 06/27/17 08:59 05/29/17 09:49 10 MG Folic Acid (Folvite Tab) 2 mg DAILY PO 05/28/17 09:00 06/27/17 08:59 05/29/17 09:49 2 MG Lamotrigine (Lamictal Tab) 300 mg DAILY PO 05/28/17 09:00 06/27/17 08:59 05/29/17 09:49 300 MG Metoclopramide HCl (Reglan Tab) 10 mg Q8 PO 05/27/17 22:00 06/26/17 21:59 05/29/17 06:56 10 MG Cephalexin Monohydrate (Keflex Cap) 500 mg TID PO 05/27/17 22:00 06/03/17 21:59 05/29/17 09:49 500 MG Diphenhydramine HCl (Benadryl Cap) 25 mg HS PRN PO 05/27/17 22:15 06/26/17 22:14 05/28/17 00:51 25 MG Mirtazapine (Remeron Tab) 7.5 mg HS PO 05/28/17 22:00 06/27/17 21:59 05/28/17 22:02 7.5 MG Lab Results Last 24 Hrs: 05/27/17 13:27 Red Blood Count 4.38, Mean Corpuscular Volume 78.3, Mean Corpuscular Hemoglobin 25.1, Mean Corpuscular Hemoglobin Concent 32.1, Mean Platelet Volume 8.8, Neutrophils (%) (Auto) 68.9, Lymphocytes (%) (Auto) 24.9, Monocytes (%) (Auto) 4.6, Eosinophils (%) (Auto) 1.3, Basophils (%) (Auto) 0.1, Neutrophils # (Auto) 5.86, Lymphocytes # (Auto) 2.12, Monocytes # (Auto) 0.39, Eosinophils # (Auto) 0.11, Basophils # (Auto) 0.01 05/27/17 13:27 Test 05/27/17 00:00 05/27/17 13:25 05/27/17 13:27 Urine Color DK YELLOW Urine Appearance TURBID (CLEAR) Urine pH 6.0 (4.5-7.5) Urine Specific [place] 1.031 (1.000-1.030) Urine Protein 1+ (NEG) Urine Glucose (UA) NEG (NEG) Urine Ketones 1+ (NEG) Urine Occult Blood 3+ (NEG) Urine Nitrite NEG (NEG) Urine Bilirubin NEG (NEG) Urine Urobilinogen NEG (NEG) Urine Leukocyte Esterase TRACE (NEG) Urine WBC (Auto) 10-30 /hpf (0-5) Urine RBC (Auto) 5-10 /hpf (0-4) Urine Hyaline Casts (Auto) 1-5 /lpf (0-5) Urine Epithelial Cells (Auto) >30 /lpf (0-5) Urine Bacteria (Auto) 2+ (NEG) Urine Pathogenic Casts /lpf (0) Urine Mucus PRESENT (NONE PRSENT) Urine Yeast (Auto) (NONE PRSENT) Urine Opiates Screen NEG (NEG) Urine Methadone, Qualitative NEG (NEG) Urine Barbiturates NEG (NEG) Urine Phencyclidine (PCP) Level NEG (NEG) Ur Amphetamine/Methamphetamine NEG (NEG) MDMA (Ecstasy) Screen NEG (NEG) Urine Benzodiazepines Screen NEG (NEG) Urine Cocaine Metabolite NEG (NEG) Urine Marijuana (THC) NEG (NEG) Bedside Glucose 80 mg/dl (70-90) White Blood Count 8.51 K/uL (4.8-10.8) Red Blood Count 4.38 M/uL (4.2-5.4) Hemoglobin 11.0 g/dL (12.0-16.0) Hematocrit 34.3 % (37-47) Mean Corpuscular Volume 78.3 fL (80-100) Mean Corpuscular Hemoglobin 25.1 pg (25-34) Mean Corpuscular Hemoglobin Concent 32.1 g/dl (32-36) Platelet Count 359 K/uL (130-400) Mean Platelet Volume 8.8 fL (7.4-10.4) Neutrophils (%) (Auto) 68.9 % Lymphocytes (%) (Auto) 24.9 % Monocytes (%) (Auto) 4.6 % Eosinophils (%) (Auto) 1.3 % Basophils (%) (Auto) 0.1 % Neutrophils # (Auto) 5.86 K/uL (1.4-6.5) Lymphocytes # (Auto) 2.12 K/uL (1.2-3.4) Monocytes # (Auto) 0.39 K/uL (0.11-0.59) Eosinophils # (Auto) 0.11 K/uL (0-0.5) Basophils # (Auto) 0.01 K/uL (0-0.2) RDW Standard Deviation 40.5 fL (36.4-46.3) RDW Coefficient of Variation 14.2 % (11.5-14.5) Immature Granulocyte % (Auto) 0.2 % Immature Granulocyte # (Auto) 0.02 K/uL (0.00-0.02) D-Dimer 700 ug/L FEU (0-500) Anion Gap 9.0 mmol/L (3-11) Est Creatinine Clear Calc Drug Dose 112.4 ml/min Estimated GFR () 142.8 Estimated GFR (Non- 123.2 BUN/Creatinine Ratio 14.5 (10-20) Calcium Level 9.1 mg/dl (8.5-10.1) Total Bilirubin 0.2 mg/dl (0.2-1) Direct Bilirubin < 0.1 mg/dl (0-0.2) Aspartate Amino Transf (AST/SGOT) 10 U/L (15-37) Alanine Aminotransferase (ALT/SGPT) 20 U/L (12-78) Alkaline Phosphatase 90 U/L (45-117) Troponin I < 0.015 ng/ml (0-0.045) Total Protein 7.8 gm/dl (6.4-8.2) Albumin 3.6 gm/dl (3.4-5.0) Thyroid Stimulating Hormone (TSH) 0.771 uIu/ml (0.300-4.500) Ethyl Alcohol mg/dL < 3.0 mg/dl (0-3) Problem Qualifiers (1) Depression: Depression Type: major depressive disorder Major depression recurrence: recurrent Major depression episode severity: severe Psychotic features: without psychotic features (2) : Weeks of gestation: 16 weeks Qualified Codes: Z3A.16 - 16 weeks gestation of
[2017-05-29] MEDS: MIRTAZAPINE TAB 15 MG TAB PO SCH (21:06)
[2017-05-30] MEDS: METOCLOPRAMIDE HCL 10 MG TAB PO SCH (06:24)
[2017-05-30 06:51] VITALS: BP_SYST 104; BP_SYST 91; BP_DIAS 59; BP_DIAS 67; PULSE 102; PULSE 92; TEMP 36.7
[2017-05-30] MEDS: ESCITALOPRAM OXALATE 10 MG TAB PO SCH (09:04)
[2017-05-30] MEDS: CETIRIZINE HCL 10 MG TAB PO SCH (09:04)
[2017-05-30] MEDS: CEPHALEXIN MONOHYDRATE 500 MG CAP PO SCH (09:04)
[2017-05-30] MEDS ORDERED: KFL500 PO (09:22)
[2017-05-30] MEDS ORDERED: RMR15 PO (09:22)
--- NOTE | 2017-05-30 09:33 | Discharge Instructions ---
Discharge Information Report Includes Report will include the: Discharge Instructions & Summary Admission Admission Date / Time: May 27, 2017 at 17:00 Reason for Admission: Depression, Discharge Discharge Diagnosis / Problem: Depresson, OCD Condition at Discharge: Good Discharge Goals Goal(s): Decrease discomfort, Improve disease control, Prevent Disease Progression Activity Recommendations Activity Limitations: resume your previous activity . Instructions / Follow-Up Instructions / Follow-Up . SPECIAL CARE INSTRUCTIONS: 1. Follow through with your scheduled aftercare appointments. If unable to keep an appointment, please call to reschedule. 2. Take your medication only as prescribed. Medication should not be changed or stopped without the approval of your doctor. In the event of worsening symptoms or concerns about side effects, contact your doctor immediately. 3. Utilize new healthy coping skills, anger management skills, and stress management skills learned during your hospitalization. Journal feelings and process them with a support person. Identify stressors or situations that may result in relapse, deterioration or inappropriate behaviors and develop a plan to deal with those issues. 4. If your coping skills are ineffective and you are in crisis, contact your outpatient providers for direction. If unable to reach your providers, please call the CAN HELP LINE AT or go to the closest Emergency Room. 5. Avoid alcohol and un-prescribed drugs. 6. You have been provided with the Mental Health Advance Directives Pamphlet for your review. AFTERCARE APPOINTMENTS: * Please call your insurance company prior to your scheduled appointment to confirm your aftercare providers are covered. Take your insurance information to your appointments. . Discharge / Aftercare Planning Primary Care Physician: Name: [facility]; Dr Willard is pts OB Appointment Notes: As needed for PCP, OB appt scheduled as below. Psychiatrist: Name: Dr. Muñoz Date of Appointment: Jun 06, 2017 Time of Appointment: 10:40 Therapist: Name Of Therapist: Ira De Guzman Date of Appointment: Jun 05, 2017 Time of Appointment: 3pm Doll Repairer: Name: None Specialist: Name: ANGELA Stacy OB-MOLECULAR BIOLOGY DIRECTOR Date of Appointment: Jun 04, 2017 Time of Appointment: 11:40 . Follow-Up Care Plan for Follow-Up Care: The patient has prompt appts with her psychiatrist, therapist and her ROLL TABLE OPERATOR Current Hospital Diet Patient's current hospital diet: Vegetarian Diet Discharge Diet Recommended Diet: Vegetarian Diet Procedures Procedures Performed: No Pending Studies Pending Studies at Discharge: No Medical Emergencies . Who to Call and When: Medical Emergencies: For questions or emergencies related to your hospital stay, please contact the Inpatient Behavioral Health Unit at [phone]. A development coach is on-call 18/03 for the Behavioral Health Unit for emergencies At any time you feel your situation is an emergency, you may also call 911 immediately. . Non-Emergent Contact Non-Emergency issues call your: Psychiatrist, Therapist Past History Medical & Surgical History: (1) Advance Directives Existing Advance Directive: No Do You Have an Existing Mental: No Existing Living Will: No Existing Power of Area Loss Prevention Manager: No Advance Directives Info Given: To Pt/S.O. Advance Directives Reason: Declines as Mental Health Visit. Discharge Summary Admission HPI Per the Admitting provider: The patient percent of the emergency room on referral from her outpatient psychiatrist due to worsening of depression, intrusive thoughts, and inability to function. She reported that her mood has worsened as her progresses, and is 16 weeks today. She endorsed sad mood, decreased appetite, disrupted sleep with about 7 hours a night, high anxiety, avoidance, and intrusive thoughts of self-harm. She has not been attending class and is unable to be managed on an outpatient basis per her outpatient psychiatrist. She denies any recent stressors. According to outpatient records, she has been seeing Dr. Muñoz since November 2015 , and is diagnosed with recurrent depression and OCD. She has a long-standing history of anxiety since childhood, with mormonism compulsions and obsessive thoughts. She had her first episode of severe depression in middle school, but did not seek treatment until she was in college. She denied a history of panic , agoraphobia, PTSD, memory problems, disruptive behaviors of childhood, psychosis, moy, and eating disorder. She was continued on sertraline, and encouraged to take a higher dose of 150 mg daily, which she was resistant to. She was referred to therapy with Ira Xiong. They also discussed the option of a trial of fluoxetine, which she was resistant to. She returned home to the [facility] for the summer, and resumed treatment when she returned to [employer] in the fall. Her sertraline was increased to 150 mg daily to target mood and anxiety symptoms, but she felt this made her more irritable and sleep worse, so was switched to escitalopram, which was increased to 15 mg daily. She then reported feeling more irritable and on edge, so escitalopram was decreased to 10 mg daily and lamotrigine was added in October 2016, and the dose increased to 200 mg daily. She then reported worsening irritability, which she attributed to the lamotrigine, although the symptoms were similar to those reported prior to starting the medication. Hydroxyzine was added for sleep and anxiety in December. She reported improvement, but then became , with nausea and fatigue during the first trimester, and worsening of mood and anxiety. Lamotrigine was increased to 300 mg daily, and escitalopram 10 mg daily was continued. She was last seen 05/21/2017, and reported ongoing depression, anxiety, sleep disturbance, and intrusive passive suicidal thoughts. Lamotrigine was increased to 200 mg twice a day, and a level was ordered. They also discussed potential trials of mirtazapine, bupropion, or buspirone. She was encouraged to try to taper to cope reminded as it may be contributing to restlessness, and was also taking Zofran and phenadoz. She then called into the clinic yesterday, reporting feeling severely depressed since the day before, unable to function, saying she could "barely make it through the day." She reported ongoing poor sleep and felt exhausted, was unable to taper metoclopramide as nausea returned, but was reducing the phenadoz suppositories as she recognized it was making her restless at night. Anxiety was worse at night, and she endorsed fatigue, low motivation and energy , psychomotor retardation, hopelessness, helplessness, worthlessness, and worsening obsessional thoughts of self-harm. They discussed the option to change her antidepressant, but she felt hopeless about this, and agreed to go to the hospital. She has endorsed ambivalence about taking medications, expressing concerns about /breast-feeding when on medications, and has often not increase the dose of her medications as recommended. Today, she states she has had worsening mood and anxiety since she got , and this weekend was tearful and feeling hopeless. Sleep was worse, had been taking Phenadoz (promethazine) from her OB, which initially seemed to help, then felt sleep got worse and she was more restlessness. She describes intrusive thoughts to harm herself, thinking that if she was hurting, she wouldn 't feel so depressed and anxious, and thought of slamming her fingers in the door, but denies acting on them. She states she is able to talk to her , and has talked to him since yesterday and feels he will be supportive of her hospitalization. She also endorses worsening anxiety, is now constant, describes as "being irritated, like an obsessive thought, tense." She denies panic, but has had some muscle tension in her shoulders and worries about her , her depression and if it will get better, how she will be able to take care of the baby. She had some depression during the first trimester of her last , but thinks it got better. She has had "extreme nausea and fatigue" during her first trimester, but thinks it is getting better. 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 She remains ambivalent about medication changes, saying after much consideration that she wants to try the Remeron. She is also wondering whether she needs to be in the hospital, stating that she barely slept last night and has been crying all day, and was advised that he is the very recent admission was recommended. She asked multiple questions about expected length of stay and treatment offered while she is here, and ultimately was willing to stay voluntarily for treatment. Hospital Course (1) Depression - Continue lamotrigine 300 mg daily and escitalopram 10 mg daily. Coordinated care with outpatient psychiatrist, Dr. Muñoz. Reviewed medication options that have been discussed with the patient at her last appointment, and seemingly mirtazapine, buspirone, and bupropion. She opted for a trial of mirtazapine. Risks, benefits, and side effects were discussed, including the risks to the fetus in , what is known and not known about potential risks, and the risks of untreated mood and anxiety disorders. Start 7.5 mg daily at bedtime tonight, and titrate as tolerated. - Encourage participation in groups and therapy on the unit. Work on healthy coping skills and discharge safety plan. - Schedule family meeting with . - For sleep, continue promethazine 12.5 mg daily at bedtime when necessary, which she may use if mirtazapine is not effective for sleep. She reports worsening sleep and increased restlessness on her previous dose of 25 mg daily at bedtime, but thinks the 12.5 mg dose has been helpful. 05/29 - Continue Remeron 7.5 mg HS - Family meeting held with this AM - 72 hr notice in, and will on Saturday. REcommend staying another day to two to see if improvements are sustained. (2) Bacteria in urine Continue seven-day course of Keflex which was started in the emergency room. (3) - Will need to follow-up as scheduled with her OB. Get a release and send records for coordination of care. (4) Thyroid nodule Incidental finding in the emergency room. Follow-up with PCP. Risk Factors Assessment : No /single/: No Higher / Fall in social status: No Health problems: Yes () Mental Health Diagnoses: Yes Substance use disorders: No Previous attempt: No Family history of suicide: No Previous psychiatric stay: No Hopelessness: Yes Smoker: No Protective Factors Assessment Druze beliefs: Yes : Yes Responsible for young children: Yes Employed: Yes Stable relationships: No (has few friendships) Supportive family: Yes Good rapport with provider: Yes Day of Discharge Assessment COURSE OF HOSPITALIZATION: The patient was admitted voluntarily due to progressively worsening depression and OCD symptoms including chronic thoughts of self harm. She is 16 wks and has had hyperemesis gravidarum during her first trimester. She has been on our unit for 3 days. She quickly submitted her 72 hr notice to withdraw from treatment, feeling that she did not need to be in the hospital. After the first 24 hr she became more comfortable on the unit, realizing that she needed to be here, but did not revoke her notice. Meds were adjusted to include starting Remeron 7.5 mg. HS, which were helpful to her sleep and appetite. She did not experience N/V during her stay and she was able to eat well. Lamictal was continued at 300 mg. daily. Family meeting was held with her , who was supportive of her treatment. Her condition improved, and she said that her thoughts were clear, not having the chronic obsessive thoughts to hurt herself and she was able to look forward and start making plans for the future. She denied any acute SI during her stay. DAY OF DISCHARGE ASSESSMENT: The patient is requesting discharge. Her 72 hr notice expires tomorrow and there are no grounds to keep her against her will. She continues to deny acute SI, and is feeling remarkably better than on admission. Today she is casually and appropriately dressed and groomed. Gait and station are WNL. Eye contact is good. Affect is smiling. Speech is of normal rate volume and tone. Thoughts are organized and goal directed, and without evidence of thought disorder. Recent/remote memory is intact per conversation. Intelligence is estimated to be average. Insight and judgement are improved over admission. Laboratory Test 05/27/17 00:00 05/27/17 13:25 05/27/17 13:27 Urine Color DK YELLOW Urine Appearance TURBID Urine pH 6.0 Urine Specific Banco 1.031 Urine Protein 1+ Urine Glucose (UA) NEG Urine Ketones 1+ Urine Occult Blood 3+ Urine Nitrite NEG Urine Bilirubin NEG Urine Urobilinogen NEG Urine Leukocyte Esterase TRACE Urine WBC (Auto) 10-30 Urine RBC (Auto) 5-10 Urine Hyaline Casts (Auto) 1-5 Urine Epithelial Cells (Auto) >30 Urine Bacteria (Auto) 2+ Urine Pathogenic Casts Urine Mucus PRESENT Urine Yeast (Auto) Urine Opiates Screen NEG Urine Methadone, Qualitative NEG Urine Barbiturates NEG Urine Phencyclidine (PCP) Level NEG Ur Amphetamine/Methamphetamine NEG MDMA (Ecstasy) Screen NEG Urine Benzodiazepines Screen NEG Urine Cocaine Metabolite NEG Urine Marijuana (THC) NEG POC Glucose 80 White Blood Count 8.51 Red Blood Count 4.38 Hemoglobin 11.0 Hematocrit 34.3 Mean Corpuscular Volume 78.3 Mean Corpuscular Hemoglobin 25.1 Mean Corpuscular Hemoglobin Concent 32.1 Platelet Count 359 Mean Platelet Volume 8.8 Neutrophils (%) (Auto) 68.9 Lymphocytes (%) (Auto) 24.9 Monocytes (%) (Auto) 4.6 Eosinophils (%) (Auto) 1.3 Basophils (%) (Auto) 0.1 Neutrophils # (Auto) 5.86 Lymphocytes # (Auto) 2.12 Monocytes # (Auto) 0.39 Eosinophils # (Auto) 0.11 Basophils # (Auto) 0.01 RDW Standard Deviation 40.5 RDW Coefficient of Variation 14.2 Immature Granulocyte % (Auto) 0.2 Immature Granulocyte # (Auto) 0.02 D-Dimer 700 Sodium Level 136 Potassium Level 3.7 Chloride Level 103 Carbon Dioxide Level 24 Anion Gap 9.0 Blood Urea Nitrogen 8 Creatinine 0.55 Est Creatinine Clear Calc Drug Dose 112.4 Estimated GFR () 142.8 Estimated GFR (Non- 123.2 BUN/Creatinine Ratio 14.5 Random Glucose 76 Calcium Level 9.1 Total Bilirubin 0.2 Direct Bilirubin < 0.1 Aspartate Amino Transferase (AST) 10 Alanine Aminotransferase (ALT) 20 Alkaline Phosphatase 90 Troponin I < 0.015 Total Protein 7.8 Albumin 3.6 Thyroid Stimulating Hormone (TSH) 0.771 Ethyl Alcohol mg/dL < 3.0 Total Time Total Time Spent (min): Greater than 30 minutes Total Time Included: examination of the patient, discharge planning, medication reconciliation, communication with other providers Tobacco Cessation at Discharge Smoking Status: Never Smoker FDA approved Prescription: non-smoker Problem Qualifiers (1) Depression: Depression Type: major depressive disorder Major depression recurrence: recurrent Major depression episode severity: severe Psychotic features: without psychotic features (2) : Weeks of gestation: 16 weeks Qualified Codes: Z3A.16 - 16 weeks gestation of
== END 2017-05-30 10:10 | disposition home or self-care (01) | DRG 881 ==
LOC: C.EDB 12:36 → ENRESERV 16:54 → C.MHU 17:00
PROVIDERS: ADMIT Psychiatry & Neurology Psychiatry; ATTEND Psychiatry & Neurology Psychiatry
DX: F32.9 Major depressive disorder, single episode, unspecified (principal); F42.9 Obsessive-compulsive disorder, unspecified; O99.342 Other mental disorders complicating pregnancy, second trimester; Z79.899 Other long term (current) drug therapy; Z3A.16 16 weeks gestation of pregnancy; Z81.8 Family history of other mental and behavioral disorders

== ENCOUNTER → 2017-08-14 | Outpatient (CLI) | payer OTHER ==
[~2017-08-14] MED LIST changes: -ASCO500T87 PO; -GLC500 PO; +KFL500 PO; +LAMO200T35 PO; -LAMO200T38 PO; -LMC25 PO; +METO-157 PO; +ONDA8TAB62 SL; +PHNS125 RE; -PREN1TAB51 PO; +RMR15 PO; -ZNTT/150 PO
[2017-08-14 14:32] LABS: URINE APPEARANCE CLEAR (CLEAR); URINE BILIRUBIN NEG (NEG); URINE COLOR YELLOW; URINE EPITHELIAL CELL AUTO >30 /lpf (0-5); URINE NITRITE NEG (NEG); URINE PH 5.5 (4.5-7.5); URINE SPECIFIC GRAVITY 1.024 (1.000-1.030); UROBILINOGEN NEG (NEG)
[2017-08-14 14:39] LABS: MANUAL MICROSCOPIC REQUIRED? NO; REVIEW REQ? NO
== END | disposition home or self-care (01) ==
LOC: C.LABSPEC 13:23
PROVIDERS: ATTEND Obstetrics & Gynecology
DX: O09.02 Supervision of pregnancy with history of infertility, second trimester (principal)

== ENCOUNTER → 2017-08-14 | Outpatient (CLI) | payer OTHER ==
[2017-08-14 13:43] LABS: THYROID STIMULATING HORMONE 0.881 uIu/ml (0.300-4.500)
[2017-08-14 14:25] LABS: GTGD 50 Grams
[2017-08-14 14:46] LABS: HEMATOCRIT 30.1 % (37-47)
== END | disposition home or self-care (01) ==
LOC: C.LAB1850 11:37
PROVIDERS: ATTEND Obstetrics & Gynecology
DX: O09.02 Supervision of pregnancy with history of infertility, second trimester (principal); E03.9 Hypothyroidism, unspecified

== ENCOUNTER → 2017-08-15 | Outpatient (CLI) | payer OTHER | END | disposition home or self-care (01) | LOC: C.LAB 12:11 | PROVIDERS: ATTEND Psychiatry & Neurology Psychiatry | DX: Z51.81 Encounter for therapeutic drug level monitoring (principal); Z79.899 Other long term (current) drug therapy ==

== ENCOUNTER → 2017-09-17 | Outpatient (CLI) | payer OTHER | END | disposition home or self-care (01) | LOC: C.LAB1850 10:00 | PROVIDERS: ATTEND Obstetrics & Gynecology | DX: O28.1 Abnormal biochemical finding on antenatal screening of mother (principal) ==

== ENCOUNTER → 2017-09-19 | Outpatient (CLI) | payer OTHER ==
[2017-09-19 14:39] LABS: HEMATOCRIT 34.4 % (37-47); HEMOGLOBIN 11.1 g/dL (12.0-16.0)
== END | disposition home or self-care (01) ==
LOC: C.LAB1850 13:44
PROVIDERS: ATTEND Obstetrics & Gynecology
DX: O09.03 Supervision of pregnancy with history of infertility, third trimester (principal); Z3A.00 Weeks of gestation of pregnancy not specified

== ENCOUNTER → 2017-10-17 | Outpatient (CLI) | payer OTHER | END | disposition home or self-care (01) | LOC: C.LABSPEC 15:49 | PROVIDERS: ATTEND Obstetrics & Gynecology | DX: O09.03 Supervision of pregnancy with history of infertility, third trimester (principal); Z3A.00 Weeks of gestation of pregnancy not specified ==

== ENCOUNTER 2017-11-11 09:07 | Inpatient (IN) | payer OTHER ==
[~2017-11-11] VITALS: Ht 139.7 cm; Wt 87.1 kg
[2017-11-11] MEDS ORDERED: LACTATED RINGER'S 1000ML 1,000 ML IV PRN (09:41)
[2017-11-11] MEDS ORDERED: ESCI10TA17 PO (10:13)
[2017-11-11] MEDS ORDERED: MIRT1TAB27 PO (10:13)
[2017-11-11] MEDS ORDERED: MIRT30TA2 PO (10:14)
[2017-11-11 10:15] VITALS: Ht 139.7 cm; Wt 87.1 kg
[2017-11-11 10:15] LABS: BASO % 0.2 %; BASO ABS # 0.02 K/uL (0-0.2); EOS % 0.2 %; EOS ABS # 0.02 K/uL (0-0.5); HEMATOCRIT 34.1 % (37-47); HEMOGLOBIN 11.3 g/dL (12.0-16.0); IG# 0.04 K/uL (0.00-0.02); LYMPH % 20.8 %; LYMPH ABS # 1.82 K/uL (1.2-3.4); MEAN CELL VOLUME 74.5 fL (80-100); MEAN CORPUSCULAR HEMOGLOBIN 24.7 pg (25-34); MEAN PLATELET VOLUME 9.7 fL (7.4-10.4); MONO % 6.4 %; MONO ABS # 0.56 K/uL (0.11-0.59); NEUT % 71.9 %; NEUT ABS # 6.31 K/uL (1.4-6.5); PLATELET COUNT 275 K/uL (130-400); RED CELL DISTRIBUTION WIDTH CV 15.5 % (11.5-14.5); RED CELL DISTRIBUTION WIDTH SD 41.5 fL (36.4-46.3); WHITE BLOOD COUNT 8.77 K/uL (4.8-10.8)
[2017-11-11 10:23] LABS: MEAN CORPUSCULAR HGB CONC 33.1 g/dl (32-36)
[2017-11-11 10:27] LABS: INR 0.9 (0.9-1.1)
[2017-11-11 10:41] LABS: ALBUMIN 2.5 gm/dl (3.4-5.0); ALT/SGPT 15 U/L (12-78); CREATININE 0.65 mg/dl (0.60-1.20); URIC ACID 4.7 mg/dl (2.6-7.2)
[2017-11-11 10:45] LABS: ALKALINE PHOSPHATASE 207 U/L (45-117); AST/SGOT 15 U/L (15-37); TOTAL PROTEIN 7.1 gm/dl (6.4-8.2)
[2017-11-11] MEDS ORDERED: OXYTOCIN 30 UNITS/500ML NSS IV ONE (11:27)
[2017-11-11] MEDS ORDERED: LACTATED RINGER'S 1000ML 500 ML IV PRN ×2 (13:06→16:25)
[2017-11-11] MEDS ORDERED: OXYTOCIN 30 UNITS/500ML NSS IV PRN ×2 (13:15→20:30)
[2017-11-11] MEDS ORDERED: BUPIVACAINE 0.25% 30 ML VIAL ONE (14:46)
[2017-11-11] MEDS ORDERED: EpHEDrine SULFATE INJ 50 MG/ML AMP ONE (14:46)
[2017-11-11] MEDS ORDERED: FENTANYL CITRATE INJ 50 MCG/1 ML 2 ML VIAL ONE ×2 (14:46→15:51)
[2017-11-11] MEDS ORDERED: FENTANYL 2MCG/ML ROPIV 1.25MG/ML 100ML BAG EPI ONE (14:47)
[2017-11-11] MEDS: LACTATED RINGER'S 1000ML 1,000 ML IV SCH ×2 (15:59→16:14)
[2017-11-11] MEDS ORDERED: NALOXONE HCL INJ 1 MG in SODIUM CHLORIDE 0.9% 1000ML 1,000 ML IV PRN (16:25)
[2017-11-11] MEDS ORDERED: EpHEDrine SULFATE INJ 50 MG/ML AMP IV PRN (16:30)
[2017-11-11] MEDS ORDERED: DiphenhydrAMINE HCL 50 MG/ML VIAL IV PRN (16:30)
[2017-11-11] MEDS ORDERED: NALOXONE HCL INJ 0.4 MG/1 ML VIAL/CARP IV PRN (16:30)
[2017-11-11] MEDS ORDERED: FENTANYL 2MCG/ML ROPIV 1.25MG/ML 100ML BAG EPI PRN (16:30)
[2017-11-11] MEDS ORDERED: NALBUPHINE HCL INJ 10 MG/ML AMP IV PRN (16:30)
[2017-11-11] MEDS ORDERED: ONDANSETRON INJ 2 MG/ML 2 ML VIAL IV PRN (16:30)
[2017-11-11] MEDS ORDERED: DIPHTHERIA/TETANUS/PERTUSSIS 0.5 ML SYR/VIAL IM. ONE (20:30)
[2017-11-11] MEDS ORDERED: SUPERCREAM 0.870 % 15GM JAR EXT PRN (20:30)
[2017-11-11] MEDS ORDERED: BENZOCAINE 20% AER SPR 82.5 GM CAN EXT PRN (20:30)
[2017-11-11] MEDS ORDERED: LANOLIN OINT EXT PRN (20:30)
[2017-11-11] MEDS ORDERED: HYDROCORTISONE ACETATE 25 MG SUPP PR PRN (20:30)
[2017-11-11] MEDS ORDERED: SODIUM CHLORIDE 0.9% IV ONE (20:45)
[2017-11-11] MEDS ORDERED: COSYNTROPIN IV ONE (20:45)
[2017-11-11] MEDS ORDERED: NURSING VERBAL MED ORDER ONE (22:30)
--- NOTE | 2017-11-11 22:31 | DELIVERY SUMMARY ---
DATE OF OPERATION: 11/11/2017 FINDINGS: Viable male with Apgars of 7 and 8. Arterial and venous cord gas is pending. Placenta delivered spontaneously. Second degree periclitoral/periurethral tear. Second degree midline laceration. Lacerations repaired with 4-0 Vicryl. Hoyos catheter placed. Estimated blood loss 300 mL. LABOR NOTE: The patient is a 32-year-old 2, para 1 with an EDC of 11 November at 40 weeks gestational age who presented to the labor and delivery with a complaint of contractions. The patient states the contractions began earlier the day and increased in intensity. She denied rupture of membranes or vaginal bleeding. The patient's course was remarkable for a psychiatric admission at 16 weeks gestational age for depression with suicide ideation. She was started on multiple physiatric medications by psychiatry and remained throughout the . She has continued to have trouble with depression but no current suicide ideation. The patient has also been noted to have microscopic hematuria throughout the as well as hematuria and proteinuria. Proteinuria was felt to be nephrotic in nature because of the normal blood pressures and normal PIH labs. Urology consult was offered for the hematuria but the patient declined. Reminder of the course showed a blood type of O positive, antibody negative, rubella immune, hepatitis B negative. She had normal 1-hour Glucola and negative third trimester beta strep culture. Upon admission, the patient was 6 cm dilated, 100% effaced and 0 station. Tracing was category 1. The patient was noted to have +3 proteinuria on admission. The patient's blood pressure was normotensive and PIH labs were within limits. As such again this was felt to be nephrotic and not PIH. About an hour after admission there had been no changing. She had artificial rupture of membranes for light meconium. Over the next 6 hours, the patient continued to feel pressure, but did not progress past 8 cm dilatation. There was also some cervical swelling. Concerns about a possible CPD versus inadequate labor. The patient requested from anesthesia an epidural which was placed. Epidural did result in a wet tap. Following placement of the epidural, the patient was started on Pitocin per augmentation protocol. Approximately 2 hours after initiating the Pitocin, the patient was full dilatation and began her second stage. She pushed for half an hour delivering the viable male . The cord was clamped and cut and baby was taken over to the resuscitation stand. Cord gases and cord blood samples obtained. Placenta delivered spontaneously. Inspection of the perineum showed a laceration inferior to the clitoris heading down towards the urethral opening. There was a pumper which was ligated with hemostat and then ligated with 4-0 Vicryl suture. The defect was then closed with 4-0. Because of its proximity to the urethra, a Hoyos catheter was placed. A small midline second degree laceration was repaired with 4-0 Vicryl. Estimated blood loss of delivery was 300 mL. Sponge and needle count was correct. I attest to the content of the Intraoperative Record and any orders documented therein. Any exception s are noted below.
[2017-11-11] MEDS: ESCITALOPRAM OXALATE 10 MG TAB PO SCH (22:35)
[2017-11-11] MEDS: MIRTAZAPINE TAB 15 MG TAB PO SCH (22:36)
[2017-11-11 23:25] VITALS: BP 118/71; PULSE 88; TEMP 37.6
[2017-11-12 03:05] VITALS: BP 102/64; PULSE 109; TEMP 36.6
[2017-11-12] MEDS: ACETAMINOPHEN 325 MG TAB PO PRN (03:30)
--- NOTE | 2017-11-12 06:28 | Progress Note ---
Subjective Nov 12, 2017. Subjective conversation w/ patient, physical exam Ambulation: ambulating normally Voiding: spain catheter in place (to be removed this am) Passing Gas: Yes Diet Tolerance: Regular Diet Lochia: Small Feeding Type: Breast Feeding Pain: moderate, 6/10, helped by tylenol Comment: pt seen and assessed at bedside this am; no acute events overnight Review of Systems Constitutional: No fever, No chills Respiratory: No cough, No shortness of breath Cardiac: No chest pain, No edema Abdomen: + problem reported (Hemmorhoids ), No nausea, No vomiting no headaches or calf pain Objective Vital Signs Date Time Temp Pulse Resp B/P (MAP) Pulse Ox O2 Delivery O2 Flow Rate FiO2 11/12/17 03:05 36.6 109 18 102/64 (77) Room Air 11/11/17 23:25 37.6 88 18 118/71 (87) Room Air 11/11/17 23:25 Room Air Physical Exam General Appearance: WELL-APPEARING, WD/WN, NO APPARENT DISTRESS Respiratory/Chest: chest non-tender, lungs clear, normal breath sounds Cardiovascular: regular rate, rhythm, no edema, no murmur Abdomen: normal bowel sounds, non tender, soft Fundus: Firm, Non-Tender, Relation to Umbilicus (1-2 below) Extremities: normal range of motion, non-tender, normal inspection, no pedal edema, no calf tenderness Laboratory Results Last 24 Hours Test 11/11/17 10:07 11/11/17 19:49 White Blood Count 8.77 K/uL Red Blood Count 4.58 M/uL Hemoglobin 11.3 g/dL Hematocrit 34.1 % Mean Corpuscular Volume 74.5 fL Mean Corpuscular Hemoglobin 24.7 pg Mean Corpuscular Hemoglobin Concent 33.1 g/dl Platelet Count 275 K/uL Mean Platelet Volume 9.7 fL Neutrophils (%) (Auto) 71.9 % Lymphocytes (%) (Auto) 20.8 % Monocytes (%) (Auto) 6.4 % Eosinophils (%) (Auto) 0.2 % Basophils (%) (Auto) 0.2 % Neutrophils # (Auto) 6.31 K/uL Lymphocytes # (Auto) 1.82 K/uL Monocytes # (Auto) 0.56 K/uL Eosinophils # (Auto) 0.02 K/uL Basophils # (Auto) 0.02 K/uL RDW Standard Deviation 41.5 fL RDW Coefficient of Variation 15.5 % Immature Granulocyte % (Auto) 0.5 % Immature Granulocyte # (Auto) 0.04 K/uL Prothrombin Time 9.4 SECONDS Prothromb Time International Ratio 0.9 Creatinine 0.65 mg/dl Est Creatinine Clear Calc Drug Dose 107.3 ml/min Estimated GFR () 135.2 Estimated GFR (Non- 116.7 Uric Acid 4.7 mg/dl Total Bilirubin 0.2 mg/dl Direct Bilirubin < 0.1 mg/dl Aspartate Amino Transf (AST/SGOT) 15 U/L Alanine Aminotransferase (ALT/SGPT) 15 U/L Alkaline Phosphatase 207 U/L Total Protein 7.1 gm/dl Albumin 2.5 gm/dl Cord Arterial Blood pH 7.39 Cord Arterial Blood PCO2 36 mmHg Cord Arterial Blood PO2 35 mmHg Cord Arterial Blood HCO3 21 mmol/L Cord Arterial Bld Oxygen Saturation 77.0 % Cord Arterial Blood Base Excess -3.1 mEq/L Cord Venous Blood pH 7.36 Cord Venous Blood PCO2 39 mmHg Cord Venous Blood PO2 33 mmHg Cord Venous Blood HCO3 21 mmol/L Cord Venous Blood Oxygen Saturation 72.0 % Cord Venous Blood Base Excess -3.7 mEq/L Medications Current Inpatient Medications Medications (Trade) Dose Ordered Sig/Yvonne Route Start Time Stop Time Status Last Admin Dose Admin Lactated Ringer's 1,000 ml @ 125 mls/hr Q8H IV 11/11/17 09:41 11/13/17 09:40 11/11/17 16:14 125 MLS/HR Lactated Ringer's 1,000 ml @ 999 mls/hr Q1H1M PRN IV 11/11/17 09:41 12/11/17 09:40 Oxytocin (Pitocin IV) 30 units UD PRN IV 11/11/17 13:15 12/11/17 13:14 11/11/17 16:14 30 UNITS Lactated Ringer's 500 ml @ 999 mls/hr Q31M PRN IV 11/11/17 13:06 12/11/17 13:05 Oxytocin (Pitocin IV) 30 units UD PRN IV 11/11/17 20:30 12/11/17 20:29 Benzocaine (Dermoplast Aero Spr) 1 appln PRN PRN EXT 11/11/17 20:30 12/11/17 20:29 11/12/17 03:31 82.5 APPLN Cocaine HCl (Supercream 0.870% Cr) BID PRN EXT 11/11/17 20:30 11/25/17 20:29 11/12/17 03:31 15 GM Hydrocortisone Acetate (Anusol Hc Supp) 25 mg BID PRN DC 11/11/17 20:30 12/11/17 20:29 Lanolin (Lanolin Oint) PRN PRN EXT 11/11/17 20:30 12/11/17 20:29 Prenat Multivit/ [place]/Iron/Folic Ac ( Vitamin Tab) 1 tab DAILY PO 11/12/17 08:00 12/12/17 07:59 Acetaminophen (Tylenol Tab) 650 mg Q6H PRN PO 11/11/17 20:30 12/11/17 20:29 11/12/17 03:30 650 MG Bisacodyl (Dulcolax Tab) 5 mg 20 PO 11/12/17 20:00 11/12/17 20:01 Docusate Sodium (coLACE CAP) 100 mg BID PO 11/12/17 08:00 12/12/17 07:59 Ferrous Sulfate (Feosol Tab) 325 mg DAILY PO 11/12/17 08:00 12/12/17 07:59 Mirtazapine (Remeron Tab) 30 mg HS PO 11/11/17 22:00 12/11/17 21:59 11/11/17 22:36 30 MG Escitalopram Oxalate (Lexapro Tab) 10 mg HS PO 11/11/17 22:00 12/11/17 21:59 11/11/17 22:35 10 MG Assessment and Plan Problem List Medical Problems: (1) Bacteria in urine Status: Acute (2) Laryngitis, acute Status: Acute (3) Thyroid nodule Status: Acute Post- Day#: 1 Continue Routine Care: 32yo F PPD 1 s/p pt doing well clinically Continue routine care Encourage ambulation and breast feeding Pain control with rx prn Romain out this morning Resident Physician Supervision Note: I interviewed and examined the patient. Discussed with Dr. Grove and agree with findings and plan as documented in the note. Any exceptions or clarifications are listed here: [place] removed this AM, will see how pt tolerates. Psych consult for medication management. Baby in Level II secondary to somnolence. Will use Super Cream for hemorrhoids Documented By: Cali Capone Resident Tracking Resident Involvement: Resident Care Provided Care Provided: OB Delivery
--- NOTE | 2017-11-12 06:46 | Discharge Instructions ---
Discharge Instructions Date of Service Nov 12, 2017. Admission Reason for Admission: R/O Labor Discharge Discharge Diagnosis / Problem: s/p Discharge Goals Goal(s): Routine recovery after delivery Medications Continue Dispensed Medications: supercream, dermaplast, tucks, lansinoh Activity Recommendations Activity Limitations: per Instructions/Follow-up section . Instructions / Follow-Up Instructions / Follow-Up ACTIVITY RECOMMENDATIONS: * Gradual return to full activity over the next 2-3 weeks. * No lifting - nothing heavier than baby over the next 2-3 weeks. * Do not engage in vigorous exercise, sexual activity or sports until cleared by your physician. * Do not drive or operate any motorized equipment until cleared by your physician. * You may shower/bathe daily. MEDICATIONS: For discomfort or pain, you may use Acetaminophen (Tylenol), Ibuprofen (Advil), or Naproxen (Aleve) following the package directions. For constipation you may use Colace following the package directions. BREAST CARE: If you are not breast feeding: * Wear a supportive bra 24 hours a day for one to two weeks. * Avoid stimulating your breasts and nipples as much as possible during the first few weeks after delivery. * When taking a shower, have the warm water hit your back, not breasts. * When your breasts feel full, apply ice packs. Usually three to four times a day helps ease the discomfort. * Take a mild pain medication (Tylenol / Motrin) when you are uncomfortable. If breast feeding: * Use breast milk to lubricate nipples. Lansinoh cream may be used for sore nipples. You do not need to remove cream prior to breast feeding. If using a different brand of cream, check the label for directions regarding removal of cream prior to nursing. * Wear a supportive bra. * If having problems with breasts or breast feeding, call a sales consultant or your health care provider. EPISIOTOMY CARE: After delivery, if you have an episiotomy (stitches), the following steps will ease discomfort and aid healing. * For the first 24 hours after delivery, place ice packs next to your episiotomy to help reduce swelling. * After the first 24 hour-period, sitz baths, either portable or in the tub, are suggested. A shower with a shower arm sprayed over the episiotomy may be comforting. * Yany care should be done after each voiding and bowel movement. Squirt warm water from a plastic bottle over the perineum (region of the body between the anus and urinary opening) and pat dry. * Use Dermoplast to ease discomfort. Shake container. [place] directly over the episiotomy. Place a Tucks on a clean sanitary pad next to your episiotomy. SPECIAL CARE INSTRUCTIONS: When you are discharged from the hospital, it is important for you to follow the instructions listed below: * During the first week at home, you should be able to care for yourself and your baby. In addition, the usual light household activities are encouraged. * Limit your activities to the way you feel. Do not try to clean the house or move furniture. Be sensible. * If you actively engage in sports and have done so up until the time of your delivery, you may resume these activities as soon as you feel able. This may take up to one month or even longer. Use good judgment. * Continue to take your vitamins for at least six weeks after the of your baby. * Your diet need not be limited unless you were on a special diet before your delivery. Breast-feeding mothers need around 2500 calories per day and at least 64-80 ounces of fluid per day (8 to 10 glasses). * You should eat foods from the four major food groups. Crash diets or fad diets are to be avoided. Eating lean meats, fresh fruits and vegetables, low-fat dairy products, high fiber foods and a regular exercise program, will help you get back to your pre- weight without putting your health at risk. * Constipation is sometimes a problem after delivery. Take a mild laxative as needed. If breast feeding, Milk of Magnesia is acceptable to use. You may use a suppository or Fleets enema if no episiotomy. * A daily shower or tub bath is suggested. Be sure to thoroughly and gently dry the perineum. * A bloody vaginal discharge will usually continue until around four weeks post . A small amount of bleeding may continue for as long as six weeks. Vaginal discharge changes from the bright red bleeding after delivery to pink then brownish and finally yellowish-pink before becoming white and disappearing. * Bleeding may increase with activity. Your first period may come in 4-8 weeks. If you are breast feeding, your period may be delayed even longer. * Badger (sex) can begin whenever both you and your partner feel comfortable and do not have any form of genital infection. It is recommended that you wait at least six weeks for internal and external healing to occur. If you have questions, please talk to your health care practitioner. A condom should be used to prevent infection and . * Foreplay, gentle intercourse and lubrication is very important the first several times to prevent pain. A water-based lubricant such as K-Y jelly or Astroglide may be used. * If you have RH negative blood and your baby is RH positive, you will receive RHOGAM by injection prior to discharge. The nurse will give you a card to keep with you that has the date and place that you received RHOGAM after delivery. * During your care, you had a Rubella screen done to check for the presence of rubella antibodies in your blood. If your test was negative, you will receive a Rubella vaccine prior to discharge. This vaccine may cause a fever, soreness at the injection site and flu-like symptoms. If these symptoms persist, notify your health care practitioner. is not advised for one month after a Rubella vaccine. * Verbalizes understanding of car seat law as reviewed with patient nursing. * Car Seat hand-out given and reviewed with patient by nursing. * Shaken baby information reviewed with patient by nursing. Call you doctor if: * Heavy bleeding (saturating several pads an hour) or passing clots the size of your fist. * A fever >101 degrees F (38.3 degrees C) on two occasions four hours apart and /or chills. * Unusual pain in the pelvic or vaginal areas. * "Baby Blues" lasting longer than two weeks. If you have any questions or concerns, call your health care practitioner at . FOLLOW UP VISIT: * Please call the office at to schedule a 1 week and 6 week examination. It is important you keep these appointments. It is important for you to make arrangements for either yearly or twice yearly check-ups thereafter. Current Hospital Diet Patient's current hospital diet: Regular OB Diet Discharge Diet Recommended Diet: Regular OB Diet Pending Studies Studies pending at discharge: no Medical Emergencies . Who to Call and When: Medical Emergencies: If at any time you feel your situation is an emergency, please call 911 immediately. . Non-Emergent Contact Non-Emergency issues call your: Rn Patient Care . . "Provider Documentation" section prepared by Sirisha Grove. .
[2017-11-12] MEDS ORDERED: ACETAMINOPHEN/CODEINE 300/30MG TAB PO PRN (07:15)
--- NOTE | 2017-11-12 07:24 | Anesthesia Procedure Note ---
Anesthesia Epidural Removal Nt Date & Time Nov 12, 2017 at 07:23 Vital Signs Pain Intensity: 2 Vital Signs Past 12 Hours Date Time Temp Pulse Resp B/P (MAP) Pulse Ox O2 Delivery O2 Flow Rate FiO2 11/12/17 03:05 36.6 109 18 102/64 (77) Room Air 11/11/17 23:25 37.6 88 18 118/71 (87) Room Air 11/11/17 23:25 Room Air Notes Mental Status: alert / awake / arousable, participated in evaluation Nausea / Vomiting: adequately controlled Pain: adequately controlled Airway Patency, RR, SpO2: stable & adequate BP & HR: stable & adequate Hydration State: stable & adequate Neuraxial Anesthesia: was administered Anesthetic Complications: no major complications apparent, pt satisfied with anesthetic care Epidural: removed without complications, with tip intact
[2017-11-12 07:30] VITALS: BP 134/88; PULSE 88; TEMP 36.7; O2SAT 99
[2017-11-12] MEDS ORDERED: ESCITALOPRAM OXALATE 10 MG TAB PO SCH (08:00)
[2017-11-12] MEDS: ACETAMINOPHEN/CODEINE 300/30MG TAB PO PRN ×3 (08:33→16:50)
[2017-11-12] MEDS: DOCUSATE SODIUM 100 MG CAP PO SCH ×2 (08:33→19:30)
[2017-11-12] MEDS: FERROUS SULFATE 325 MG TAB PO SCH (08:33)
[2017-11-12] MEDS: PRENATAL VITAMIN TAB PO SCH (08:33)
--- NOTE | 2017-11-12 12:03 | Psychiatric Consultation ---
Consultation Date of Consultation Nov 12, 2017. Identifying Data 32 y/o female with a history of depression, generalized anxiety disorder and obsessive compulsive disorder who follows with Dr. Muñoz at [facility] and is admitted to L&D after a full term delivery yesterday. Chief Complaint "Good ". History of Present Illness Patient is known to me from psychiatric hospitalization on the behavioral health unit in May 2017 for depression. She follows with Dr. Muñoz, and was last seen on 11/06/2017. At that time, she reported some anxiety at night with difficulty falling asleep, but otherwise mood was fair and stable. They reviewed her red flags of worsening mood (pessimism, low energy, restless sleep , tearfulness, poor focus, feeling tired all the time), and although she was experiencing some of them, she did not wish to change her medications. She had previously been on lamotrigine for depression augmentation, but was tapered off of it in September 2017, as she wanted to breast-feed. Her sleep and anxiety did appear to worsen slightly after tapering off the lamotrigine. Mirtazapine has historically been the most beneficial medication for her mood. There was discussion of options if mood worsens further, including resuming lamotrigine versus an alternative augmentation agent such as aripiprazole, quetiapine, or Cytomel. She wants to avoid medications associated with weight gain or sedation. On my assessment, the patient states her mood remains well controlled , is stable, and she does not wish to make changes to her regimen. She denies SI, HI, psychotic symptoms, manic symptoms, and significant anxiety. She understands the concerns for medications causing sedation and her infant, and states she definitely wants to breast-feed, and would not be willing to give that up. We reviewed various options with respect to her medications and breast -feeding, including breast-feeding on her medications and closely monitoring the effects on the infant, breast-feeding only at night, or tapering off the mirtazapine. Reviewed the risks and benefits of each, including the risk of another episode of depression, as she experienced PPD after the of her last child. For now she wants to continue escitalopram and mirtazapine, and is scheduled to follow up with Dr. Muñoz on 12/05/2017. She hopes to be discharged home tomorrow, and denies any further mental health needs at this time. Past Psychiatric History Current OP Treatment: psychiatrist (Dr. Muñoz at [facility]), therapist (Ira De Guzman at [facility]) Prior OP Treatment: psychiatrist, therapist Prior Psych Hospitalizations: [facility] (05/2017 for depression and SI) Suicide Attempts: No Past Medication Trials Faverin - not available in the [place], was on it for 4-5 years Sertraline - 4-5 years, took throughout first and while breast-feeding Alprazolam - used briefly as needed lamotrigine - tapered off it in 09/2017 Additional Notes Diagnosed with recurrent depression, generalized anxiety disorder, obsessive- compulsive disorder, and has endorsed PMDD symptoms Allergies Allergies: Coded Allergies: Amoxicillin (Verified Allergy, Intermediate, HIVES, 11/11/17) Ibuprofen (Verified Allergy, Intermediate, rash, 11/11/17) Shellfish Allergy (Verified Allergy, Intermediate, HIVES, 11/11/17) Sulfa Antibiotics (Verified Allergy, Intermediate, RASH, 11/11/17) Home Medications Scheduled Escitalopram (Lexapro), 10 MG PO DAILY Miscellaneous Medications Mirtazapine Soltab (Remeron Soltab), 30 MG PO Family History History of Suicide: No History of Substance Abuse: No Psychiatric History: Yes (father has a history of anxiety and OCD, father's side with OCD and sisters with anxiety but have not required treatment. Depression on both mother's and father's sides of the family) Alcohol Use Alcohol Use In Past 12 Months: No Smoking Use Smoking Status: Never Smoker Substance History Denies. Personal History Lives in: [place] with her , but [place] a [place] Childhood: Normal childhood, no history of abuse. Raised by both parents, second oldest of 5 girls. Denies problems in school, but always had difficulty with friendships, feeling people did not like her. Family lives in [facility]. 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 Relationship History: (10 yrs, arranged marriage) Children: son born in 2010, in first grade, second child born 11/11/17 Spiritual Affiliation: Cheondoism Legal History: none Psychological Trauma History: Denies Hx Traumatic Event Examination Vital Signs Vital Signs Past 12 Hours Date Time Temp Pulse Resp B/P (MAP) Pulse Ox O2 Delivery O2 Flow Rate FiO2 3/20/18 08:00 Room Air 11/12/17 07:30 36.7 88 18 134/88 (103) 99 Room Air 11/12/17 03:05 36.6 109 18 102/64 (77) Room Air Laboratory Results Last 24 Hours Test 11/11/17 19:49 Cord Arterial Blood pH 7.39 Cord Arterial Blood PCO2 36 mmHg Cord Arterial Blood PO2 35 mmHg Cord Arterial Blood HCO3 21 mmol/L Cord Arterial Bld Oxygen Saturation 77.0 % Cord Arterial Blood Base Excess -3.1 mEq/L Cord Venous Blood pH 7.36 Cord Venous Blood PCO2 39 mmHg Cord Venous Blood PO2 33 mmHg Cord Venous Blood HCO3 21 mmol/L Cord Venous Blood Oxygen Saturation 72.0 % Cord Venous Blood Base Excess -3.7 mEq/L Mental Examination During interview pt is: alert and oriented, cooperative Appearance: appropriately dressed, appropriately groomed (Just showered) Eye contact is: good Motor behavior is: steady gait & station, no abnormal motor movements Speech: normal in rate, rhythm & volume Affect: mood congruent, euthymic Mood is: other ("Good") Thought process: goal directed Thought content: reality based without delusions Suicidal thought are: denied Homicidal thoughts are: denied Hallucinations: denies auditory, denies visual Cognition: memory grossly intact, attention grossly intact, language grossly intact Intelligence estimated to be: average Insight: good Judgement: good Impression / Recommendations Impression 32-year-old female with a history of recurrent depression, generalized anxiety and OCD who is admitted status post vaginal delivery of her second child, a son. She has been following with Dr. Muñoz at [facility], and discussed the case with her. She has a history of depression, placing her at high risk for PPD, which is the primary risks of tapering her off either of her antidepressants at this time. Ultimately, she will have to weigh the risks and benefits of the different options with respect to use of psychotropic medications and breast-feeding, as there is also a potential risk of medications causing somnolence in her . For now, she wishes to continue escitalopram and mirtazapine, and to try breast-feeding once her has stabilized, with close monitoring of any effects this might have. She is psychiatrically stable for discharge to home once medically appropriate. She will follow up with Dr. Muñoz on 12/05/2017 at 1 PM. She should continue individual therapy with Ira armenta, and will need to schedule her next appointment at her earliest convenience. Risk Factors Assessment : No /single/: No Higher / Fall in social status: No Access to guns: No Health problems: No Mental Health Diagnoses: Yes Substance use disorders: No Family history of suicide: No Previous psychiatric stay: Yes Hopelessness: No Smoker: No Protective Factors Assessment Hoahaoism beliefs: Yes : Yes Responsible for young children: Yes Employed: Yes Stable relationships: Yes Supportive family: Yes Good rapport with provider: Yes Recommendations (1) Depression Mood stable, continue current meds. Confirmed doses of escitalopram and mirtazapine, and will f/u with Dr. Muñoz on 12/05/17. Lamotrigine was tapered off last month. Airset Caster has advised the patient to pump and dispose of milk until stable, and can continue to discuss with her outpatient psychiatrist and soft shoe dancer - option of breast feeding on current meds with close monitoring of baby, breast feeding only at night if baby becomes lethargic after feeding, tapering mirtazapine and breast feeding, or forgoing breast feeding. Continue individual psychotherapy with Ira De Guzman, no current appointment scheduled and she will need to call to schedule. (2) Anxiety As above.
[2017-11-12 12:15] VITALS: BP 130/92; PULSE 97; TEMP 36.5
[2017-11-12 16:30] VITALS: BP 134/84; PULSE 98; TEMP 36.8
[2017-11-12] MEDS ORDERED: BISACODYL 5 MG TABEC PO SCH (20:00)
[2017-11-12] MEDS: MIRTAZAPINE TAB 15 MG TAB PO SCH (21:27)
[2017-11-12] MEDS: ESCITALOPRAM OXALATE 10 MG TAB PO SCH (21:27)
[2017-11-12 23:10] VITALS: BP 110/76; PULSE 98; TEMP 37; O2SAT 97
--- NOTE | 2017-11-13 06:34 | Progress Note ---
Subjective Nov 13, 2017. Subjective conversation w/ patient Ambulation: ambulating normally Voiding: no voiding problems Passing Gas: Yes Diet Tolerance: Regular Diet Lochia: Small Feeding Type: Breast Feeding Pain: minimal, well controlled Comment: pt seen and assessed at bedside today; no acute events overnight Review of Systems Constitutional: No fever, No chills Respiratory: No cough, No shortness of breath Cardiac: No chest pain, No edema Abdomen: No nausea, No vomiting no headaches or calf pain. Reports upper arm pain bilaterally Objective Vital Signs Date Time Temp Pulse Resp B/P (MAP) Pulse Ox O2 Delivery O2 Flow Rate FiO2 11/12/17 23:10 37.0 98 18 110/76 (87) 97 Room Air 11/12/17 23:10 97 Room Air 11/12/17 16:30 Room Air 11/12/17 16:30 36.8 98 16 134/84 (101) Room Air 11/12/17 12:15 36.5 97 20 130/92 (105) Room Air 11/12/17 08:00 Room Air 11/12/17 07:30 36.7 88 18 134/88 (103) 99 Room Air Physical Exam General Appearance: WELL-APPEARING, WD/WN, NO APPARENT DISTRESS Respiratory/Chest: chest non-tender, lungs clear, normal breath sounds Cardiovascular: regular rate, rhythm, no edema, no murmur Abdomen: normal bowel sounds, non tender, soft Fundus: Firm, Non-Tender, Relation to Umbilicus (3-4 below) Extremities: normal range of motion, non-tender, normal inspection, no pedal edema, no calf tenderness Laboratory Results Last Resulted 11/11/17 10:07 Red Blood Count 4.58, Mean Corpuscular Volume 74.5, Mean Corpuscular Hemoglobin 24.7, Mean Corpuscular Hemoglobin Concent 33.1, Mean Platelet Volume 9.7, Neutrophils (%) (Auto) 71.9, Lymphocytes (%) (Auto) 20.8, Monocytes (%) (Auto) 6.4, Eosinophils (%) (Auto) 0.2, Basophils (%) (Auto) 0.2, Neutrophils # (Auto) 6.31, Lymphocytes # (Auto) 1.82, Monocytes # (Auto) 0.56, Eosinophils # (Auto) 0.02, Basophils # (Auto) 0.02 Last Resulted 11/11/17 10:07 Medications Current Inpatient Medications Medications (Trade) Dose Ordered Sig/Yvonne Route Start Time Stop Time Status Last Admin Dose Admin Lactated Ringer's 1,000 ml @ 125 mls/hr Q8H IV 11/11/17 09:41 11/13/17 09:40 11/11/17 16:14 125 MLS/HR Lactated Ringer's 1,000 ml @ 999 mls/hr Q1H1M PRN IV 11/11/17 09:41 12/11/17 09:40 Oxytocin (Pitocin IV) 30 units UD PRN IV 11/11/17 13:15 12/11/17 13:14 11/11/17 16:14 30 UNITS Lactated Ringer's 500 ml @ 999 mls/hr Q31M PRN IV 11/11/17 13:06 12/11/17 13:05 Oxytocin (Pitocin IV) 30 units UD PRN IV 11/11/17 20:30 12/11/17 20:29 Benzocaine (Dermoplast Aero Spr) 1 appln PRN PRN EXT 11/11/17 20:30 12/11/17 20:29 11/12/17 03:31 82.5 APPLN Cocaine HCl (Supercream 0.870% Cr) BID PRN EXT 11/11/17 20:30 11/25/17 20:29 11/12/17 03:31 15 GM Hydrocortisone Acetate (Anusol Hc Supp) 25 mg BID PRN OR 11/11/17 20:30 12/11/17 20:29 Lanolin (Lanolin Oint) PRN PRN EXT 11/11/17 20:30 12/11/17 20:29 Prenat Multivit/ [place]/Iron/Folic Ac ( Vitamin Tab) 1 tab DAILY PO 11/12/17 08:00 12/12/17 07:59 11/12/17 08:33 1 TAB Acetaminophen (Tylenol Tab) 650 mg Q6H PRN PO 11/11/17 20:30 12/11/17 20:29 11/12/17 03:30 650 MG Docusate Sodium (coLACE CAP) 100 mg BID PO 11/12/17 08:00 12/12/17 07:59 11/12/17 19:30 100 MG Ferrous Sulfate (Feosol Tab) 325 mg DAILY PO 11/12/17 08:00 12/12/17 07:59 11/12/17 08:33 325 MG Mirtazapine (Remeron Tab) 30 mg HS PO 11/11/17 22:00 12/11/17 21:59 11/12/17 21:27 30 MG Escitalopram Oxalate (Lexapro Tab) 10 mg HS PO 11/11/17 22:00 12/11/17 21:59 11/12/17 21:27 10 MG Acetaminophen/ Codeine Phosphate (Tylenol w/ Codeine #3 Tab) 1 tab Q4H PRN PO 11/12/17 07:15 12/12/17 07:14 11/12/17 16:50 1 TAB Acetaminophen/ Codeine Phosphate (Tylenol w/ Codeine #3 Tab) 2 tab Q4H PRN PO 11/12/17 07:15 12/12/17 07:14 11/12/17 23:16 2 TAB Assessment and Plan Problem List Medical Problems: (1) Bacteria in urine Status: Acute (2) Laryngitis, acute Status: Acute (3) Thyroid nodule Status: Acute Post- Day#: 2 Continue Routine Care: 32 yo PPD 2 s/p Continue routine care Encourage ambulation, breast feeding Pain control with rx prn Discharge instructions reviewed Resident Physician Supervision Note: I interviewed and examined the patient. Discussed with Dr. Grove and agree with findings and plan as documented in the note. Any exceptions or clarifications are listed here: Doing well. Plan d/c. Appreciate psych consult. To f/u as scheduled and continue her meds. Patient notes she cannot take ibuprofen and asks for T#3. I have advised her to try to hold off given the other meds she is on may be sedating with breast feeding. If that doesn't help, she is to call. She will be rooming in. Documented By: Lisbeth Valles Resident Tracking Resident Involvement: Resident Care Provided Care Provided: OB Delivery
[2017-11-13] MEDS: PRENATAL VITAMIN TAB PO SCH (09:36)
[2017-11-13] MEDS: DOCUSATE SODIUM 100 MG CAP PO SCH ×2 (09:36→20:50)
[2017-11-13] MEDS: FERROUS SULFATE 325 MG TAB PO SCH (09:36)
[2017-11-13] MEDS: ACETAMINOPHEN/CODEINE 300/30MG TAB PO PRN (09:41)
[2017-11-13] MEDS ORDERED: MISC-836 (10:35)
[2017-11-13] MEDS: ACETAMINOPHEN 325 MG TAB PO PRN ×2 (16:48→20:56)
[2017-11-13 17:45] VITALS: BP 136/84; PULSE 99; TEMP 36.8; O2SAT 96
[2017-11-13 21:45] VITALS: BP_DIAS 84; PULSE 99; TEMP 36.8
[2017-11-13] MEDS: ESCITALOPRAM OXALATE 10 MG TAB PO SCH (21:52)
[2017-11-13] MEDS: MIRTAZAPINE TAB 15 MG TAB PO SCH (21:53)
== END 2017-11-13 22:00 | disposition home or self-care (01) | DRG 775 ==
LOC: C.OPB 09:07 → C.LD 09:08 → C.OPB 09:43 → C.LD 09:43 → C.OBG 22:43
PROVIDERS: ADMIT Obstetrics & Gynecology; ATTEND Obstetrics & Gynecology
PROC: 0KQM0ZZ Repair Perineum Muscle, Open Approach (ICD-10-PCS; principal; 2017-11-11)
PROC: 10E0XZZ Delivery of Products of Conception, External Approach (ICD-10-PCS; principal; 2017-11-11)
PROC: 0UQMXZZ Repair Vulva, External Approach (ICD-10-PCS; principal; 2017-11-11)
PROC: 0UQJXZZ Repair Clitoris, External Approach (ICD-10-PCS; principal; 2017-11-11)
DX: O99.344 Other mental disorders complicating childbirth (principal); F33.9 Major depressive disorder, recurrent, unspecified; O87.2 Hemorrhoids in the puerperium; O26.833 Pregnancy related renal disease, third trimester; Z37.0 Single live birth; F42.9 Obsessive-compulsive disorder, unspecified; F41.1 Generalized anxiety disorder; O62.0 Primary inadequate contractions; O33.9 Maternal care for disproportion, unspecified; O70.1 Second degree perineal laceration during delivery; O71.82 Other specified trauma to perineum and vulva; O71.89 Other specified obstetric trauma; O77.0 Labor and delivery complicated by meconium in amniotic fluid; N28.89 Other specified disorders of kidney and ureter; R31.9 Hematuria, unspecified; O12.14 Gestational proteinuria, complicating childbirth; O34.40 Maternal care for other abnormalities of cervix, unspecified trimester; Z3A.40 40 weeks gestation of pregnancy; Z81.8 Family history of other mental and behavioral disorders; Z79.899 Other long term (current) drug therapy; Z88.0 Allergy status to penicillin; Z88.2 Allergy status to sulfonamides; Z88.6 Allergy status to analgesic agent; Z91.013 Allergy to seafood

== ENCOUNTER → 2017-12-26 | Outpatient (CLI) | payer OTHER ==
[~2017-12-26] MED LIST changes: -CETI10TA84 PO; +ESCI10TA17 PO; -FLV1 PO; -KFL500 PO; -LAMO200T35 PO; -LXP10 PO; -METO-157 PO; +MIRT30TA2 PO; +MISC-836; -ONDA8TAB62 SL; -PHNS125 RE; -RMR15 PO
== END | disposition home or self-care (01) ==
LOC: C.PAPS 15:47
PROVIDERS: ATTEND Obstetrics & Gynecology
DX: Z12.4 Encounter for screening for malignant neoplasm of cervix (principal)